=== PATIENT | female | born 1945 | race Caucasian/White ===

== ENCOUNTER 2019-11-30 17:59 | Emergency (ER) | payer MEDICARE, MEDICAID, SELFPAY ==
[2019-11-30 18:01] VITALS: BMI 15.6
--- NOTE | 2019-11-30 18:03 | ED_ITS ---
Entered by Anne Mas, acting as scribe for HPI - Neuro Symptoms/Deficit General: Chief Complaint: Neuro Symptoms/Deficit Stated Complaint: LEFT ARM WEAKNESS Time Seen by Provider: 11/30/19 18:14 Source: patient and EMS Mode of arrival: EMS Limitations: no limitations History of Present Illness: HPI Narrative: 74 yo Female presents to ED with complaint of arm tingling and left side upper extremity weakness. Pt states that these symptoms started at 1715 today. She states she was normal at least 15 minutes before this. Pt states that she has atrial fibrillation but does not take any blood thinners. Pt states that she felt a little dizzy and tingly when this episode first started. Onset (ago): minute(s) Location: left arm and ataxia History of same: No Quality: weak and tingling Relieving factors: none Exacerbating factors: none Context: gradual onset On Anticoagulants: No Associated symptoms: Reports tingling and weakness; Deny chest pain, diaphoresis, headache(s), malaise, nausea, syncope, vertigo or vomiting Treatments Prior to Arrival: none Review of Systems General: Reports: other (negative unless marked) Const: Denies: fever, chills, body aches, fatigue, malaise or diaphoresis Eyes: Denies: change in vision or blurry vision ENMT: Denies: throat pain, painful swallowing, hoarseness, ear pain, ear discharge, Change in hearing or nasal discharge Card: Denies: chest pain, palpitations, irregular heart rhythm, syncope, pre- syncope, shortness of breath on exertion or shortness of breath when lying down Resp: Denies: shortness of breath, productive cough, non-productive cough, wheezing, coughing up blood or chest congestion GI: Denies: abdominal pain, nausea, vomiting, vomiting blood, coffee grounds in vomit, diarrhea, constipation, cramping, blood in stool or black tarry stool : Denies: flank pain, painful urination, urinary frequency, urinary urgency, decreased urine ouput, urinary incontinence or blood in urine Musc: Denies: neck pain, back pain, extremity pain, extremity swelling, joint pain, joint swelling, joint warmth or joint stiffness Skin/Breast: Denies: rash, skin tenderness or yellow skin Neuro: Reports: numbness in extremities, weakness in extremities and dizziness; Denies: headache, changes in sensation, lack of coordination, difficulty walking, vertigo or confusion Endo: Denies: excessive thirst, tired all the time, cold intolerance, excessive sweating, flushing or hot flashes [place]/Lymph: Denies: easy bruising, easy bleeding, petechiae or enlarged lymph nodes All/Imm: Denies: hives, throat swelling, tongue swelling, facial swelling or acute wheezing PFSH ED PFSH: Statuses (acute, chronic, etc) shown below reflect problem list status as previously entered and may not be historically accurate Social History Smoking and tobacco status: former smoker NIH stroke score NIHSS: Level Of Consciousness - 1a: 0 Level Of Consciousness Questions - 1b: Both Correct Level Of Consciousness Commands - 1c: Both Correct Best Gaze - 2: Normal Visual Fischer - 3: No Visual Loss Facial Palsy - 4: Normal Motor Arm Right - 5: No Drift Motor Arm Left - 5: Drift Motor Leg Right - 6: No Drift Motor Leg Left - 6: Drift Limb Ataxia - 7: Present In One Limb Sensory - 8: Mild To Moderate Loss Best Language - 9: No Aphasia Dysarthia - 10: Normal Extinction And Inattention - 11: 0 Score: Total Score: 4 Physical Exam Const: COMMON NORMALS: no apparent distress, oriented x3, no limitations, healthy appearing and well nourished EXAM LIMITATIONS: no altered mental status GENERAL APPEARANCE: cooperative, well kempt and well developed ORIENTATION/CONSCIOUSNESS: Yes awake HENMT: COMMON NORMALS: normocephalic, head/scalp atraumatic, hearing grossly normal bilaterally, external ears normal, EAC's normal, external nose normal and moist oral mucous membranes HEAD & SCALP: normal to inspection, normocephalic and atraumatic FACE & SINUS: normal facial exam and face symmetric NOSE: external nose normal and nares normal EXTERNAL EAR: Yes external ears normal EXTERNAL AUDITORY CANAL: EAC's normal MOUTH: oral and palatal mucosa normal and tongue normal Eye: COMMON NORMALS: PERRL, EOMs intact bilaterally, conjunctivae normal and no scleral icterus GENERAL EYE: normal appearance of both eyes and normal light reflex CONJUNCTIVA: Yes conjunctivae normal SCLERA: sclerae normal CORNEA: Yes corneas normal PUPIL: Yes PERRL DIRECT OPHTHALMOSCOPY: Yes normal light reflex Neck/C-Spine: COMMON NORMALS: full ROM, no lymphadenopathy, supple, no meningeal signs and no JVD GENERAL: Yes normal visual inspection and Yes trachea midline CERVICAL SPINE: Yes cervical ROM normal Chest: COMMONS NORMALS: inspection of chest normal and palpation of chest normal Resp: COMMON NORMALS: normal respiratory effort, no retractions, no use of accessory muscles and clear to auscultation bilaterally EFFORT & INSPECTION: Yes able to speak in complete sentences AUSCULTATION: clear to auscultation bilaterally Cardio: COMMON NORMALS: no JVD, regular rate, regular rhythm, S1 normal heart sound, S2 normal heart sound, no gallops, no clicks, no murmurs and no rub JUGULAR VENOUS DISTENTION: no JVD RATE: regular rate RHYTHM: regular rhythm HEART SOUNDS: S1 normal and S2 normal GI: COMMON NORMALS: soft to palpation, non-tender, no hepatosplenomegaly and no masses INSPECTION: Yes normal to inspection PALPATION: Yes soft and Yes no hepatosplenomegaly : COMMON NORMALS: Yes no CVA tenderness BLADDER/KIDNEY EXAM: Yes no CVA tenderness Back/Pelvis: COMMON NORMALS: no CVA tenderness, thoracic and lumbar spine normal to inspection, no thoracic nor lumbar tenderness and thoraco-lumbar ROM normal Extremity: COMMON NORMALS: normal to inspection, full ROM, normal capillary refill, no joint enlargement, no clubbing, cyanosis or edema and no calf tenderness Neuro: COMMON NORMALS: oriented x3, CN's II-XII intact bilaterally, moves all extremities, no focal motor deficits and no sensory deficits noted MENINGEAL SIGNS: Yes no meningeal signs Psych: COMMON NORMALS: mental status grossly normal, thought process normal, cooperative, affect normal, speech normal and activity/motor behavior normal APPEARANCE: Yes well kempt SPEECH: Yes normal speech THOUGHT PROCESS: normal thought process Skin: COMMON NORMALS: no rashes or lesions noted, skin turgor normal, no jaundice, no petechiae and no mottling GENERAL SKIN EXAM: no rashes or lesions noted and turgor normal Course Vital Signs: Vital signs: Vital Signs Temperature 98.0 F 11/30/19 18:15 Pulse Rate 94 11/30/19 21:27 Respiratory Rate 22 H 11/30/19 21:27 Blood Pressure 133/74 11/30/19 21:27 Pulse Oximetry 94 11/30/19 21:27 MDM - Neuro Symptoms/Deficit MDM Narrative: Medical decision making narrative: 18:15 Dr. [place] made decision to administer TPA. We will not proceed with CTA as the patient's NIH is less than 6. Blood pressure is in normal range and labs are appropriate. 2100 -the case is been previously reviewed with Dr. Sanchez, he was aware of the patient and accepted in transfer. At this time EMS is coming to get the patient. Her symptoms have completely resolved at this time. Lab Data: Attestation: I reviewed the patient's lab results. Labs: Lab Results 11/30/19 11/30/19 11/30/19 Range/Units 18:13 18:20 18:20 WBC 5.6 (4.0-10.0) 10^3/ uL RBC 4.42 (4.1-5.3) 10^6/u L Hgb 13.5 (11.5-15.3) g/dL Hct 41.9 (37.0-47.0) % MCV 94.8 (81-99) fL MCH 30.5 (28.0-34.0) pg MCHC 32.2 (30.0-36.0) g/dL RDW 14.0 (12.1-15.1) % Plt Count 176 (130-400) 10^3/c mm MPV 10.8 H (7.4-10.4) fL Neut % (Auto) 68.3 % Lymph % (Auto) 17.1 % [place] % (Auto) 12.1 % Eos % (Auto) 1.8 % Baso % (Auto) 0.5 % Neut # (Auto) 3.8 (1.8-7.7) 10^3/u L Lymph # (Auto) 1.0 (0.8-4.8) 10^3/u L [place] # (Auto) 0.7 (0.2-0.9) 10^3/u L Eos # (Auto) 0.1 (0.0-0.8) 10^3/u L Baso # (Auto) 0.0 (0.0-0.1) 10^3/u L Nucleated RBC % (a uto) 0 % Nucleated RBCs # 0.0 /100WBC PT 15.20 H (10.5-13.3) SECO NDS INR 1.16 (0.8-1.2) APTT 33.5 (23.9-36.7) SECO NDS Sodium (136-145) mmol/L Potassium (3.5-5.1) mmol/L Chloride (98-107) mmol/L Carbon Dioxide (22-29) mmol/L Anion Gap (5-19) BUN (8-23) mg/dL Creatinine (0.5-0.9) mg/dL Glucose (65-115) mg/dL POC Glucose 88 (70-110) mg/dL Calcium (8.5-10.5) mg/dL Total Bilirubin (0.15-1.2) mg/dL AST (0-32) U/L ALT (0-33) U/L Alkaline Phosphata se (35-105) IU/L Total Protein (6.6-8.7) g/dL Albumin (3.5-5.2) g/dL Globulin (1.3-4.6) g/dL 11/30/19 Range/Units 18:20 WBC (4.0-10.0) 10^3/ uL RBC (4.1-5.3) 10^6/u L Hgb (11.5-15.3) g/dL Hct (37.0-47.0) % MCV (81-99) fL MCH (28.0-34.0) pg MCHC (30.0-36.0) g/dL RDW (12.1-15.1) % Plt Count (130-400) 10^3/c mm MPV (7.4-10.4) fL Neut % (Auto) % Lymph % (Auto) % [place] % (Auto) % Eos % (Auto) % Baso % (Auto) % Neut # (Auto) (1.8-7.7) 10^3/u L Lymph # (Auto) (0.8-4.8) 10^3/u L [place] # (Auto) (0.2-0.9) 10^3/u L Eos # (Auto) (0.0-0.8) 10^3/u L Baso # (Auto) (0.0-0.1) 10^3/u L Nucleated RBC % (a uto) % Nucleated RBCs # /100WBC PT (10.5-13.3) SECO NDS INR (0.8-1.2) APTT (23.9-36.7) SECO NDS Sodium 139 (136-145) mmol/L Potassium 4.2 (3.5-5.1) mmol/L Chloride 100 (98-107) mmol/L Carbon Dioxide 26 (22-29) mmol/L Anion Gap 17.2 (5-19) BUN 31 H (8-23) mg/dL Creatinine 1.3 H (0.5-0.9) mg/dL Glucose 94 (65-115) mg/dL POC Glucose (70-110) mg/dL Calcium 10.1 (8.5-10.5) mg/dL Total Bilirubin 0.4 (0.15-1.2) mg/dL AST 19 (0-32) U/L ALT 12 (0-33) U/L Alkaline Phosphata se 61 (35-105) IU/L Total Protein 7.6 (6.6-8.7) g/dL Albumin 4.4 (3.5-5.2) g/dL Globulin 3.2 (1.3-4.6) g/dL Imaging Data^: CT Head: Radiologist's impression: [place] [address] CT Scan Report Signed Patient: Audelia Zacarias #: [id number] : 4Acct#:[id number] Age/Sex: 74 / FADM Date: 11/30/19 Loc: [facility]/Bed: Attending Dr: Ordering Provider/Ordering MD: Brisa Vrema DO Date of Service: 11/30/19 Procedure(s): CT head wo con* [id number] Accession Number(s): [id number] Report Number: [id number] PROCEDURE INFORMATION: Exam: CT Head Without Contrast Exam date and time: 11/30/2019 6:01 PM Age: 74 years old Clinical indication: Weakness, facial; Additional info: Symptoms of acute stroke TECHNIQUE: Imaging protocol: Computed tomography of the head without contrast. Total DLP: 609.65 mGy-cm Radiation optimization: All CT scans at this facility use at least one of these dose optimization techniques: automated exposure control; mA and/or kV adjustment per patient size (includes targeted exams where dose is matched to clinical indication); or iterative reconstruction. Other technique: STROKE PROTOCOL was implemented. COMPARISON: No relevant prior studies available. FINDINGS: Brain: Normal. No hemorrhage. Unremarkable white matter. No mass effect. Ventricles: Normal. No ventriculomegaly. Bones/joints: Unremarkable. No acute fracture. Sinuses: Mild left sphenoid sinus disease. Mastoid air cells: Visualized mastoid air cells are well aerated. Soft tissues: Unremarkable. Vasculature: Severe calcified intracranial atherosclerotic vessel disease. CT/CT head wo con* [id number] IMPRESSION: 1. Mild left sphenoid sinus disease. 2. No acute intracranial findings. ASSESSMENT: ASPECTS ([place] Stroke Program Early CT Score) is 10. Radiation Dose CTDIVOL = (mGy): DLP = 609.65 (mGy-cm) Dictated By:Jace Allen MD Signed By:Jace Allen MDSigned Date/Time:11/30/191818 DD/ 17 EKG Data^: EKG 1: Attestation: I personally reviewed and interpreted this EKG as follows: EKG interpretation date: 11/30/19 EKG interpretation time: 19:20 Interpretation: Atrial fibrillation with a ventricular rate of 93 beats a minute, nonspecific ST-T wave changes, otherwise no acute findings. Discharge Plan Discharge Patient Disposition: Xfer Short-Term Hosp Clinical Impression: Cerebrovascular accident Qualifiers: CVA mechanism: unspecified Qualified Code(s): I63.9 - Cerebral infarction, unspecified Condition: Stable Referrals: Mark Kraus MD [Primary Care Provider] - Coding Level of Care Code ED Personal Development Mentor for Chg Fwd Exam Problem Focused The documentation recorded by the Tg more Carmen, accurately reflects the service I personally performed and the decisions made by Luci barry Eli N
[2019-11-30 18:15] VITALS: BP 141/98; PULSE 112; RESP 20; TEMP 36.7; O2SAT 96
[2019-11-30 18:27] LABS: Glucose Point of Care 88 mg/dL (70-110)
[2019-11-30 18:29] VITALS: O2SAT 98
[2019-11-30 18:30] VITALS: BP 145/92; PULSE 109; RESP 18; O2SAT 97
[2019-11-30 18:35] LABS: Basophils % 0.5 %; Eosinophils # 0.1 10^3/uL (0.0-0.8); Eosinophils % 1.8 %; Hematocrit 41.9 % (37.0-47.0); Hemoglobin 13.5 g/dL (11.5-15.3); Lymphocytes % 17.1 %; Mean Corpuscular HGB Conc 32.2 g/dL (30.0-36.0); Mean Corpuscular Hemoglobin 30.5 pg (28.0-34.0); Mean Corpuscular Volume 94.8 fL (81-99); Mean Platelet Volume 10.8 fL (7.4-10.4); Monocytes # 0.7 10^3/uL (0.2-0.9); Monocytes % 12.1 %; Neutrophils # 3.8 10^3/uL (1.8-7.7); Neutrophils % 68.3 %; Nucleated Red Blood Cells % 0 %; Platelet Count 176 10^3/cmm (130-400); Red Blood Count 4.42 10^6/uL (4.1-5.3); White Blood Count 5.6 10^3/uL (4.0-10.0)
[2019-11-30 18:55] LABS: INR 1.16 (0.8-1.2)
[2019-11-30 18:56] LABS: Alanine Aminotransferase 12 U/L (0-33); Albumin Level 4.4 g/dL (3.5-5.2); Alkaline Phosphatase 61 IU/L (35-105); Anion Gap 17.2 (5-19); Aspartate Amino Transferase 19 U/L (0-32); Blood Urea Nitrogen 31 mg/dL (8-23); Calcium 10.1 mg/dL (8.5-10.5); Carbon Dioxide 26 mmol/L (22-29); Chloride 100 mmol/L (98-107); Globulin 3.2 g/dL (1.3-4.6); Glucose 94 mg/dL (65-115); Partial Thromboplastin Time 33.5 SECONDS (23.9-36.7); Potassium 4.2 mmol/L (3.5-5.1); Sodium 139 mmol/L (136-145); Total Bilirubin 0.4 mg/dL (0.15-1.2); Total Protein 7.6 g/dL (6.6-8.7)
--- NOTE | 2019-11-30 21:25 | PC.NURSE ---
Patient left in stable condition in care of EMS for transfer to [address] room 4317. Report called to Trevor HARDY.
[2019-11-30 21:27] VITALS: BP 133/74; PULSE 94; RESP 22; O2SAT 94
--- NOTE | 2019-12-08 17:05 | PM.SAN ---
Stroke Alert Activation ED Arrival Date: 11/30/19 ED Arrival Time: 18:00 ED Physican at Bedside: 18:00 Last Known Normal/at Baseline: < 1 hour ago Other Last Known Well Infomation: I was called stat for stroke team for this 74-year-old woman. Her NIH stroke scale score was 4. I came directly to the emergency department as soon as the stroke alert was called which was as soon as the patient arrived in the hospital. I looked at her CAT scan on the monitor and there was no sign of hemorrhage. She received the order for TPA within 17 minutes of her arrival and the bolus was given 20 minutes after arrival. Her blood pressure and blood sugar were both normal (blood pressure 116/69 and Accu-Chek 88). She wanted to stay here but we did not have a bed and she was transferred for further care. I explained her stroke to the family and Dr. Gay and I worked together on this patient's care. Stroke Alert Activated by: [facility] Stroke Alert Activation Time: 17:55 Stroke MD @ Bedside Time: 17:57 NIH Stroke Scale Time: 18:07 NIH Stroke Scale Score: NIH Stroke Scale Score: 4 Stroke Alert Data/Treatment Time to CT of Head: 18:00 CT Results Time: 18:07 tPA Started Time: tPA Started - Time: 18:20 tPA Admin Prior to Arrival: No Patient & Family Educated on: Cause of Stroke, Risk Factors, Treament Plan, Stroke Education Booklet and tPA Risks/Benefits Standardized Stroke Orders Used: No (Patient was transferred because we did not have beds) Critical Care Time Critical Care Time: less than 30 mins Coding Level of Care Code Acute Sales Planning Coordinator for Ayesha Fwjuan francisco Time Spent (min) 30
== END 2019-11-30 21:35 | disposition short-term general hospital (02) ==
PROVIDERS: Emergency Provider Emergency Medicine; Family Provider Family Medicine; PCP Family Medicine
DX: I63.9 Cerebral infarction, unspecified (principal); Z87.891 Personal history of nicotine dependence
CPT/HCPCS: 12345; 36415; 36416; 70450; 80053; 82962; 85025; 85610; 85730; 96365; 96374; 99283; 99285; J2997

== ENCOUNTER 2019-12-16 16:56 | Outpatient (CLI) | payer MEDICARE, SELFPAY ==
--- NOTE | 2019-12-16 17:05 | XRR_ITS ---
PROCEDURE INFORMATION: Exam: XR Chest, 1 View Exam date and time: 12/16/2019 5:05 PM Age: 74 years old Clinical indication: Shortness of breath; Prior surgery; Surgery date: <1 month; Additional info: Dyspnea. Please call Dr. Baugh with report TECHNIQUE: Imaging protocol: XR of the chest Views: 1 view. COMPARISON: CR Chest 1 [place] [id number] 12/03/2013 11:14 AM FINDINGS: Lungs: Emphysema. 2.0 cm nodular density in the right lung apex. Scarring in the right upper lung. Bibasilar atelectasis. Pleural space: Small bilateral pleural effusions. No pneumothorax. Heart/Mediastinum: Atrial appendage closure device. Bones/joints: Apical pleural scarring, right greater than left. Mild scoliosis. XR/XR chest 1V [id number] IMPRESSION: 1. 2 cm nodule in the right lung apex. A neoplastic process is not excluded. Follow-up with a CT chest is recommended. 2. Pleural effusions with basilar atelectasis.
== END 2019-12-16 16:57 | disposition home or self-care (01) ==
PROVIDERS: Family Provider Family Medicine; PCP Family Medicine; Visit Provider Thoracic Surgery (Cardiothoracic Vascular Surgery)
DX: R06.00 Dyspnea, unspecified (principal); R91.1 Solitary pulmonary nodule; J90 Pleural effusion, not elsewhere classified; J98.11 Atelectasis
CPT/HCPCS: 71045

== ENCOUNTER 2020-02-17 07:59 | Outpatient (CLI) | payer MEDICARE, MEDICAID, SELFPAY ==
--- NOTE | 2020-02-17 08:03 | CT_ITS ---
WS: [id number] CT CHEST TECHNIQUE: Contrast enhanced CT of the chest with coronal and sagittal reformatted images. CLINICAL INFORMATION: RIGHT PULMONARY NODULE COMPARISON: Radiograph January 28, 2020 DLP: 664.[address] scans at [facility] use at least one of these dose optimization techniques: automat ed exposure control; mA and/or kV adjustment per patient size (includes targeted exams where dose is matched to clinical indication); or iterative reconstruction. FINDINGS: Hyperinflation. Advanced chronic emphysematous changes. Pleural thickening right upper lobe with fibr osis. No suspicious pulmonary mass or nodule. Pleural thickening left lung apex. Small bilateral pleural effusions with right greater than left bibasilar atelectasis. Micronodular tr ee-in-bud type infiltrates in the lung bases and right middle lobe. Additional similar-appearing fibr otic and micronodular infiltrates in right upper lobe anteromedially. No focal consolidation. Cardio megaly. No mediastinal or hilar lymphadenopathy. Normal thyroid. Normal caliber thoracic aorta. Mild aortic calcification. No axillary lymphadenopathy. Partially visualized left renal pelvic/UPJ calculus. Findings can be further evaluated with renal sto ne protocol CT. Calculus measures 6 mm on the left. Mild diffuse fatty infiltration of the liver. Mild intrahepatic biliary ductal dilatation. Enlarged c ommon bile duct partially visualized measuring 7.8 mm. Partially Visualized gallbladder appears cathy l. Findings can be further evaluated with ultrasound.. Moderate thoracic kyphosis. Mild thoracic curve. CT/CT chest w con* [id number] IMPRESSION: 1. No evidence of right upper lobe pulmonary mass or lesion to correspond to t he x-ray findings. 2. Moderate chronic emphysematous changes with small bilateral pleural effusio ns and bibasilar atelectasis. 3. Micronodular tree-in-bud type infiltrates both lower lobes, right middle lo be, and right upper lobe anteriorly with parenchymal scarring. Findings can be seen with bronchiolitis. 4. No mediastinal or hilar lymphadenopathy. 5. Partially visualized left renal pelvic calculus measuring 6 mm. This can be further evaluated with renal stone protocol CT. 6. Enlargement of the right hepatic lobe with mild intrahepatic biliary ductal dilatation. Dilated common bile duct measuring 8 mm. This can be further evalu ated with ultrasound.
[2020-02-17 08:32] LABS: Blood Urea Nitrogen 25 mg/dL (8-23)
[2020-02-17] MEDS: iodixanol 320 mg/mL 100mL Btl IV (08:39)
== END 2020-02-17 08:00 | disposition home or self-care (01) ==
LOC: RADWPI 08:02
PROVIDERS: Family Provider Family Medicine; PCP Family Medicine; Visit Provider Family Medicine
DX: R91.1 Solitary pulmonary nodule (principal); J90 Pleural effusion, not elsewhere classified; J98.11 Atelectasis; R91.8 Other nonspecific abnormal finding of lung field; R16.0 Hepatomegaly, not elsewhere classified
CPT/HCPCS: 71260; 82565; 84520; Q9967

== ENCOUNTER 2020-02-23 08:39 | Outpatient (CLI) | payer MEDICARE, MEDICAID, SELFPAY ==
--- NOTE | 2020-02-23 | US_ITS ---
WS: [id number] RIGHT UPPER QUADRANT ULTRASOUND HISTORY: COMMON BILE DUCT DILATATION COMPARISON: 04/07/2011. Chest CT 02/17/2020 Liver: 15.0 cm in length. Normal size and echogenicity with no intrahepatic dilatation. No mass. Gallbladder: Normally distended gallbladder with no stones or wall thickening. CBD: 3.2 cm Pancreas: Normal size and echogenicity. Right kidney: 9.2 cm in length. Normal echogenicity with no mass or hydronephrosis. Aorta and IVC: Unremarkable. No ascites. Small RIGHT pleural effusion. US/US liver [id number] IMPRESSION: 1. No intrahepatic or extra hepatic duct dilatation. 2. Normal gallbladder. 3. Small RIGHT pleural effusion.
== END 2020-02-23 08:40 | disposition home or self-care (01) ==
PROVIDERS: Family Provider Family Medicine; PCP Family Medicine; Visit Provider Family Medicine
DX: K83.8 Other specified diseases of biliary tract (principal); J90 Pleural effusion, not elsewhere classified
CPT/HCPCS: 76705

== ENCOUNTER 2020-06-15 10:07 | Outpatient (CLI) | payer MEDICARE, MEDICAID, SELFPAY ==
--- NOTE | 2020-06-15 10:15 | USCV_ITS ---
Audelia Zacarias Age: 74 Gender: F : 1945 Exam Date: 06/15/2020 10:23 Ordering Phys: Monica Orosco Technologist: Jane Holt Exam Location: [facility] [place] Indication: Shortness of breath BP: 110 / 60 HR: 76 Rhythm: Sinus Technical Quality: Fair MEASUREMENTS (Male / Female) Normal Values 2D ECHO LV Diastolic Diameter PLAX 3.0 cm 4.2 - 5.9 / 3.9 - 5.3 cm LV Systolic Diameter PLAX 1.2 cm LV Chamber Size 2.9 cm IVS Diastolic Thickness 0.8 cm 0.6 - 1.0 / 0.6 - 0.9 cm IVS Systolic Thickness 1.2 cm LVPW Diastolic Thickness 0.6 cm 0.6 - 1.0 / 0.6 - 0.9 cm LVPW Systolic Thickness 1.3 cm RV Chamber Size 3.5 cm LVOT Diameter 2.0 cm LV Ejection Fraction 2D Teich 89.9 % LV Ejection Fraction MOD 2C 58.0 % LV Ejection Fraction 2C AL 59.0 % LA Diameter 2.9 cm LA Width 4.8 cm LA Height 6.3 cm RA Width 3.5 cm RA Height 4.7 cm Aorta at Sinotubular Diameter 2.4 cm M-MODE LV Diastolic Diameter MM 3.3 cm 4.2 - 5.9 / 3.9 - 5.3 cm LV Systolic Diameter MM 1.7 cm LV Ejection Fraction MM Teich 82.2 % IVS Diastolic Thickness MM 0.5 cm 0.6 - 1.0 / 0.6 - 0.9 cm IVS Systolic Thickness MM 0.9 cm LVPW Diastolic Thickness MM 0.7 cm 0.6 - 1.0 / 0.6 - 0.9 cm LVPW Systolic Thickness MM 1.1 cm RV Diastolic Diameter MM 1.3 cm Aortic Annulus Diameter 2.9 cm LA Ao Ratio MM 1.0 MV E Point Septal Separation 0.3 cm DOPPLER AV Peak Velocity 103.0 cm/s LVOT Peak Velocity 81.0 cm/s AV Area Cont Eq vti 2.1 cm squared AV Area Cont Eq pk 2.4 cm squared MV Area PHT 3.9 cm squared MV E' Velocity 11.0 cm/s Mitral E to MV E' Ratio 7.0 Mitral E to LV E' Lateral Ratio 8.0 Mitral E to LV E' Septal Ratio 6.2 TR Peak Velocity 260.0 cm/s TR Peak Gradient 27.0 mmHg TR Mean Velocity 186.8 cm/s TR Mean Gradient 14.3 mmHg TR Velocity Time Integral 67.0 cm TV Peak E Velocity 41.0 cm/s Right Atrial Pressure 8.0 mmHg Pulmonary Artery Systolic Pressu 35.0 mmHg PV Peak Velocity 34.0 cm/s RV Acceleration Time 0.1 s RV Ejection Time 0.3 s RV AcT/ET 0.4 FINDINGS Left Ventricle Normal left ventricular size, systolic function and wall thickness, with no regional wall motion abnormalities. LVEF is 55 to 60%. Diastolic function is indeterminate because of atrial fibrillation. Right Ventricle The right ventricle is normal in size and function. Right Atrium The right atrium is normal in size. Left Atrium The left atrium is mildly dilated Mitral Valve Structurally normal mitral valve without significant stenosis or prolapse. There is no mitral regurgitation. Aortic Valve Structurally normal aortic valve without significant sclerosis or stenosis. There is no aortic regurgitation. Tricuspid Valve Structurally normal tricuspid valve without significant stenosis. Mild tricuspid regurgitation is noted. RVSP is 45 to 50 mmHg. Moderate pulmonary hypertension. RA pressure is 10 to 15 mmHg. Pulmonic Valve Structurally normal pulmonic valve without significant stenosis. There is mild pulmonic regurgitation. Pericardium Normal pericardium without effusion. Aorta Normal ascending aorta dimension. CONCLUSIONS LV systolic function is normal with EF of 55 to 60%. Diastolic function is indeterminate because of atrial fibrillation. Moderate pulmonary hypertension is noted. Mildly elevated RA pressure. Celestine Dorantes MD (Electronically Signed) Final Date: 16 June 2020 09:17 S
== END 2020-06-15 10:08 | disposition home or self-care (01) ==
LOC: US 10:08
PROVIDERS: PCP Family Medicine; Visit Provider Nurse Practitioner Family
DX: R06.02 Shortness of breath (principal); I27.20 Pulmonary hypertension, unspecified; I48.91 Unspecified atrial fibrillation
CPT/HCPCS: 93306

== ENCOUNTER → 2020-06-22 14:01 | Outpatient (BNVA) | payer MEDICARE, MEDICAID, SELFPAY | PROVIDERS: Family Provider Family Medicine; PCP Family Medicine; Visit Provider Internal Medicine | DX: R06.02 Shortness of breath (principal); I48.91 Unspecified atrial fibrillation; M79.89 Other specified soft tissue disorders; R53.83 Other fatigue; I27.20 Pulmonary hypertension, unspecified; Z86.73 Personal history of transient ischemic attack (TIA), and cerebral infarction without residual deficits; Z79.899 Other long term (current) drug therapy | CPT/HCPCS: 80048; 83880 ==

== ENCOUNTER 2021-06-29 14:39 | Outpatient (CLI) | payer MEDICARE, MEDICAID, SELFPAY ==
--- NOTE | 2021-06-29 14:47 | XR_ITS ---
WS: [id number] DEXA (DUAL ENERGY X-RAY ABSORPTIOMETRY) Bone mineral density was performed using a [employer] machine. HISTORY: POSTMENOPAUSAL COMPARISON: 01/24/2018 Lumbar spine BMD (L1-L4): 0.821 g/cm2 T score: -3.0 Z score: -0.4 Total hip BMD: Left: 0.603 g/cm2. T score: -3.2 Z score: -0.8 Right: 0.642 g/cm2. T score: -2.9 Z score: -0.5 10 year probability of a major osteoporotic fracture is 17%. Compared to the prior study from 01/24/2018. Lumbar spine bone mineral density has decrease by 9.0%. Bilateral hips bone mineral density has decreased by 4.7%. XR/XR DEXA axial skeleton* [id number] IMPRESSION: OSTEOPOROSIS based upon the WHO classification for females. Significant decrease in bone mineral density within the lumbar spine and hips s schuyler the prior study.
--- NOTE | 2021-06-29 15:16 | MM_ITS ---
WS: [id number] BILATERAL DIGITAL SCREENING MAMMOGRAM WITH CAD CLINICAL INFORMATION: SCREENING HISTORY: Screening mammogram. No current complaints. COMPARISON: TECHNIQUE: Bilateral CC and MLO. FINDINGS: The breast are composed of extremely dense tissue, which can limit the detection of small underlying mass lesions. No suspicious focal mass, asymmetry, calcifications, or architectural distortion. No ev idence of malignancy. Vascular calcification. A few eggshell calcifications. MM/[id number] IMPRESSION: BI-RADS: 2-Benign FOLLOW UP: 1 Year Follow-up Recommend return to annual screening mammography.
== END 2021-06-29 14:40 | disposition home or self-care (01) ==
PROVIDERS: PCP Family Medicine; Visit Provider Nurse Practitioner Family
DX: Z12.31 Encounter for screening mammogram for malignant neoplasm of breast (principal); Z78.0 Asymptomatic menopausal state; M81.0 Age-related osteoporosis without current pathological fracture
CPT/HCPCS: 77067; 77080

== ENCOUNTER 2022-08-28 14:25 | Outpatient (CLI) | payer MEDICARE, MEDICAID, SELFPAY ==
--- NOTE | 2022-08-28 14:31 | MM_ITS ---
WS: [id number] BILATERAL 3D TOMOSYNTHESIS DIGITAL SCREENING MAMMOGRAM WITH CAD CLINICAL INFORMATION: SCREENING HISTORY: Screening mammogram. No current complaints. COMPARISON: 2020 TECHNIQUE: Bilateral CC and MLO. FINDINGS: The breast are composed of extremely dense tissue, which can limit the detection of small underlying mass lesions. No suspicious focal mass, asymmetry, calcifications, or architectural distortion. No ev idence of malignancy. Vascular calcification. A few eggshell calcifications. MM/[id number] IMPRESSION: BI-RADS: 2-Benign FOLLOW UP: 1 Year Follow-up Recommend return to annual screening mammography.
== END 2022-08-28 14:26 | disposition home or self-care (01) ==
LOC: RAD 14:25
PROVIDERS: PCP Family Medicine; Visit Provider Family Medicine
DX: Z12.31 Encounter for screening mammogram for malignant neoplasm of breast (principal)
CPT/HCPCS: 77063; 77067

== ENCOUNTER → 2022-10-10 13:41 | Outpatient (BNVA) | payer MEDICARE, MEDICAID, SELFPAY | PROVIDERS: PCP Family Medicine; Visit Provider Internal Medicine | DX: I48.91 Unspecified atrial fibrillation (principal); Z86.73 Personal history of transient ischemic attack (TIA), and cerebral infarction without residual deficits; R64 Cachexia; Z68.1 Body mass index [BMI] 19.9 or less, adult | CPT/HCPCS: 99213 ==

== ENCOUNTER → 2023-03-22 07:54 | Outpatient (BNVA) | payer MEDICARE, MEDICAID, SELFPAY | PROVIDERS: PCP Family Medicine; Visit Provider Thoracic Surgery (Cardiothoracic Vascular Surgery) | DX: Z51.89 Encounter for other specified aftercare (principal) | CPT/HCPCS: 99213; A6212 ==

== ENCOUNTER → 2023-04-11 15:14 | Outpatient (BNVA) | payer MEDICARE, MEDICAID, SELFPAY | PROVIDERS: PCP Family Medicine; Visit Provider Internal Medicine | DX: I48.91 Unspecified atrial fibrillation (principal); R64 Cachexia; Z68.1 Body mass index [BMI] 19.9 or less, adult; Z86.73 Personal history of transient ischemic attack (TIA), and cerebral infarction without residual deficits | CPT/HCPCS: 99214 ==

== ENCOUNTER 2023-08-30 08:56 | Outpatient (CLI) | payer MEDICARE, MEDICAID, SELFPAY ==
--- NOTE | 2023-08-30 09:26 | MM_ITS ---
WS: [id number] BILATERAL SCREENING DIGITAL TOMOSYNTHESIS MAMMOGRAM WITH CAD HISTORY: SCREENING COMPARISON: 08/28/2022 and 06/29/2021 Bilateral CC and MLO views with tomosynthesis and synthetic mammography submitted. Computer aided det ection analyzed. Breast composition: The breasts are extremely dense, which lowers the sensitivity of mammography. No suspicious masses, microcalcifications or architectural distortion. Benign arterial calcifications in each breast. IMPRESSION: MM/[place] [id number] BI-RADS: 2-Benign FOLLOW UP: 1 Year Follow-up
== END 2023-08-30 08:57 | disposition home or self-care (01) ==
LOC: RAD 08:56
PROVIDERS: PCP Family Medicine; Visit Provider Family Medicine
DX: Z12.31 Encounter for screening mammogram for malignant neoplasm of breast (principal)
CPT/HCPCS: 77063; 77067

== ENCOUNTER → 2023-10-08 13:31 | Outpatient (BNVA) | payer MEDICARE, MEDICAID, SELFPAY | PROVIDERS: PCP Family Medicine; Visit Provider Internal Medicine Cardiovascular Disease | DX: I48.91 Unspecified atrial fibrillation (principal); Z95.818 Presence of other cardiac implants and grafts; F50.9 Eating disorder, unspecified; R04.0 Epistaxis; K21.9 Gastro-esophageal reflux disease without esophagitis; R06.02 Shortness of breath; R64 Cachexia; Z68.1 Body mass index [BMI] 19.9 or less, adult; I25.2 Old myocardial infarction | CPT/HCPCS: 99213 ==

== ENCOUNTER → 2024-04-07 12:11 | Outpatient (BNVA) | payer MEDICARE, MEDICAID, SELFPAY | PROVIDERS: PCP Family Medicine; Visit Provider Internal Medicine Cardiovascular Disease | DX: I48.91 Unspecified atrial fibrillation (principal); Z98.890 Other specified postprocedural states; F50.9 Eating disorder, unspecified; R04.0 Epistaxis; R64 Cachexia; R60.9 Edema, unspecified; Z86.73 Personal history of transient ischemic attack (TIA), and cerebral infarction without residual deficits; Z68.1 Body mass index [BMI] 19.9 or less, adult | CPT/HCPCS: 99214 ==

== ENCOUNTER 2024-09-25 09:12 | Emergency (ER) | payer MEDICARE, MEDICAID, SELFPAY ==
[2024-09-25 09:17] VITALS: BP 118/60; PULSE 72; RESP 17; TEMP 36.6; O2SAT 99; BMI 15.7
--- NOTE | 2024-09-25 09:19 | ECG_ITS ---
[facility] Date: 2024-09-25 Pat Name: Audelia Zacarias Department: Room: Gender: Female Cardiology Coordinator: : 1945 Requested By: Amparo Bundy Order Number: [id number] Hever MD: Osmar Tafoya M.D. Measurements Intervals [place] Rate: 72 P: 0 WV: 0 QRS: 99 QRSD: 83 T: 56 QT: 381 QTc: 417 Interpretive Statements ATRIAL FIBRILLATION POSSIBLE RIGHT VENTRICULAR CONDUCTION DELAY [RSR (QR) IN V1/V2] ANTEROLATERAL MYOCARDIAL INFARCTION , OF INDETERMINATE AGE [40+ ms Q WAVE IN I/aVL/V3-V6] No previous ECG available for comparison Electronically Signed On 09-25-2024 16:51:00 TRAVEL TICKETING REVIEWER by Osmar Tafoya M.D. [id number]
--- NOTE | 2024-09-25 09:35 | XR_ITS ---
WS: [id number] XR chest 1V portable [id number] REASON FOR EXAM: chest pain FINDINGS: Most recent examination is from 01/28/2020. Significantly thickened right lung apical cap which was present on the previous examination which ap pears unchanged. Irregular aeration throughout both lungs suggestive of central lobar emphysema. There is a septal bul lous disease in the lower lungs bilaterally. Intracardiac, presumed left atrial, device unchanged compared to the previous examination. There is cardiomegaly. There are interstitial lung opacities in both lower lung [place]. There are bilateral pleural effusion s larger on the right. XR/XR chest 1V portable [id number] IMPRESSION: Obstructive lung disease. Findings compatible with congestive heart failure.
[2024-09-25 10:28] LABS: Basophils % 0.4 %; Eosinophils # 0.1 10^3/uL (0.0-0.8); Eosinophils % 0.6 %; Hematocrit 38.7 % (36-47); Lymphocytes # 0.4 10^3/uL (0.8-4.8); Lymphocytes % 5.1 %; Mean Corpuscular HGB Conc 31.8 g/dL (30-55); Mean Corpuscular Hemoglobin 31.4 pg (27-33); Mean Corpuscular Volume 98.7 fl (85-98); Mean Platelet Volume 10.3 fL (7.4-10.4); Monocytes # 0.9 10^3/uL (0.2-0.9); Monocytes % 10.8 %; Neutrophils # 6.52 10^3/uL (1.8-7.7); Neutrophils % 82.7 %; Nucleated Red Blood Cells % 0 %; Platelet Count 195 10^3/cmm (157-399); Red Blood Count 3.92 10^6/uL (3.85-5.65); Red Cell Distribution Width 14.9 % (12.1-15.1); White Blood Count 7.88 10^3/uL (3.29-11.43)
[2024-09-25 10:44] LABS: Troponin(5th) Baseline 11 ng/L (0-10)
[2024-09-25 11:03] LABS: Alanine Aminotransferase 14 U/L (0-33); Albumin Level 4.2 g/dL (3.5-5.2); Alkaline Phosphatase 64 U/L (35-105); Blood Urea Nitrogen 22 mg/dL (8-23); Calcium 9.5 mg/dL (8.5-10.5); Carbon Dioxide 29 mmol/L (22-29); Chloride 100 mmol/L (98-107); Glucose 98 mg/dL (65-115); NT Pro B Type Natriuretic Pept 1498 pg/mL (0-450); Osmolality Calculated 291 mOsm/kg (285-295); Sodium 139 mmol/L (136-145); Total Bilirubin 0.7 mg/dL (0.15-1.2); Total Protein 7.2 g/dL (6.6-8.7)
[2024-09-25 11:04] LABS: Anion Gap 13.8 (5-19); Aspartate Amino Transferase 23 U/L (0-32); Potassium 3.8 mmol/L (3.5-5.1)
[2024-09-25 12:53] LABS: Troponin 5 2HR 10.53 ng/L (0-10)
[2024-09-25 12:54] LABS: Troponin 5 2HR Delta -0.47 ABS# (0-10)
[2024-09-25 13:12] VITALS: BP 128/66; PULSE 98; RESP 17; O2SAT 96
--- NOTE | 2024-09-25 13:15 | ECG_ITS ---
[facility] Date: 2024-09-25 Pat Name: Audelia Zacarias Department: Room: Gender: Female Bulk Sealer: : 1945 Requested By: Amparo Bundy Order Number: [id number] Hever MD: Osmar Tafoya M.D. Measurements Intervals [place] Rate: 79 P: 0 DE: 0 QRS: 99 QRSD: 87 T: 78 QT: 371 QTc: 426 Interpretive Statements ATRIAL FIBRILLATION POSSIBLE RIGHT VENTRICULAR CONDUCTION DELAY [RSR (QR) IN V1/V2] SEPTAL MYOCARDIAL INFARCTION , OF INDETERMINATE AGE [40+ ms Q WAVE IN V1/V2] LATERAL MYOCARDIAL INFARCTION , PROBABLY OLD [40+ ms Q WAVE AND/OR ST/T ABNORMALITY IN I/aVL/V5/V6] Compared to ECG 09/25/2024 09:19:14 No significant changes Electronically Signed On 09-25-2024 16:58:12 CHIEF NURSE ANESTHETIST by Osmar Tafoya M.D. [id number]
--- NOTE | 2024-09-25 13:48 | W.ED.CHESTPA ---
HPI - Chest Pain General: Chief Complaint: Chest Pain Stated Complaint: chest pain Time Seen by Provider: 09/25/24 13:35 History of Present Illness: 78-year-old female presents emergency room has intermittent chest pain that started yesterday. Does not radiate last for just a second or 2 and then resolves. She had it while at rest and with activity has not noticed anything that exacerbates or relieves it. No associated shortness of breath or diaphoresis. No nausea. She has some chronic back and neck pain and scoliosis. No recent falls or trauma no cough or congestion. Patient previously had a Watchman implant placed for her A-fib after she had a stroke she had not been taking her anticoagulant because it gave her headache. She denies any problems since then. Associated symptoms: Deny abdominal pain, dyspnea or fever(s) Related Data Home Medications Medication Instructions Recorded Confirmed famotidine 20 mg tablet 20 mg PO DAILY 03/04/20 09/25/24 metoprolol succinate 50 mg 50 mg PO DAILY 03/04/20 09/25/24 tablet,extended release 24 hr potassium chloride 10 mEq 10 meq PO DAILY 03/04/20 09/25/24 tablet,extended release (Klor-Con) montelukast 10 mg tablet 10 mg PO DAILY PRN allergies 08/25/20 09/25/24 (Singulair) verapamil 120 mg 24 hr 120 mg PO BID 09/21/21 09/25/24 capsule,extended release meclizine 12.5 mg tablet 25 mg PO TID PRN Nausea And 08/28/24 09/25/24 Vomiting sertraline 25 mg tablet 25 mg PO DAILY 08/28/24 09/25/24 atorvastatin 40 mg tablet 40 mg PO DAILY 09/25/24 09/25/24 pediatric multivitamin 2 tab PO DAILY 09/25/24 09/25/24 no.239-ferrous sulfate 10 mg chewable tablet ([facility] Immunity Support) Previous Rx's Medication Instructions Recorded furosemide 40 mg tablet 20 mg (1/2 x 40 mg) PO BID #90 tabs 07/14/20 oxybutynin chloride 5 mg 5 mg PO DAILY #30 tabs 08/28/24 tablet,extended release 24 hr Allergies Allergy/AdvReac Type Severity Reaction Status Date / Time Penicillins Allergy passed out Verified 09/25/24 10:35 Review of Systems Const: Denies: fever(s) or chills Card: Reports: chest pain; Denies: edema or swelling of feet/ankles Resp: Denies: dyspnea GI: Denies: abdominal pain : Denies: dysuria, urinary frequency or urinary urgency Musc: Denies: neck pain or back pain Skin/Breast: Denies: rash PFSH ED PFSH: Medical History Edema Shortness of breath Cervical stenosis of spine Multilevel. Atrial fibrillation GERD (gastroesophageal reflux disease) Shingles (~10/2019) Chronic neck pain Recurrent epistaxis Eating disorder Cachexia CVA (cerebral vascular accident) (11/30/19) Thought to have been caused by clot from A. fib Surgical History S/P left atrial appendage ligation S/P breast biopsy, right (02/25/01) Benign. S/P breast biopsy, left (~1995) Benign. S/P hysterectomy (~1985) H/O heart surgery (~11/2019) Due to A. fib (after stroke). Performed at [facility]. Family History Mother CAD (coronary artery disease) Father CAD (coronary artery disease) Social History Smoking and tobacco/nicotine status: former use of tobacco/nicotine Alcohol intake: never Substance/Drug Use: never Lives independently: Yes Household members: none Housing: House Physical Exam Const: GENERAL APPEARANCE: cooperative ORIENTATION/CONSCIOUSNESS: Yes awake, Yes oriented to person, Yes oriented to place and Yes oriented to time HENMT: COMMON NORMALS: normocephalic, atraumatic and hearing grossly normal bilaterally HEAD & SCALP: normocephalic and atraumatic Resp: COMMON NORMALS: normal respiratory effort, No retractions, No use of accessory muscles and clear to auscultation bilaterally AUSCULTATION: clear to auscultation bilaterally Cardio: COMMON NORMALS: regular rate, regular rhythm and No murmurs present (Cardio) RATE: regular rate RHYTHM: regular rhythm GI: COMMON NORMALS: Soft to palpation and No hepatosplenomegaly present AUSCULTATION: Yes normoactive bowel sounds PALPATION: Yes Soft to palpation, No Tenderness to palpation present (GI), No Guarding due to palpation present (GI) and Yes No hepatosplenomegaly present Extremity: COMMON NORMALS: normal to inspection, capillary refill normal, no clubbing, cyanosis or edema, no calf tenderness and no pedal edema Neuro: SENSORIUM/ORIENTATION: Yes oriented to person, Yes oriented to place and Yes oriented to time Skin: COMMON NORMALS: no rashes or lesions noted GENERAL SKIN EXAM: no rashes or lesions noted Course Vital Signs: Vital signs: Vital Signs Temperature 97.9 F 09/25/24 09:17 Pulse Rate 60 09/25/24 15:06 Respiratory Rate 17 09/25/24 14:23 Blood Pressure 110/53 09/25/24 15:06 Pulse Oximetry 99 09/25/24 15:06 Oxygen Delivery Me thod Room Air 09/25/24 09:17 MDM - Chest Pain Medical Decision Making Patient's primary complaint is pain cardiac enzymes negative. Has a history of atrial fibrillation there is mention in the chest x-ray of findings suggestive of congestive heart failure at this time she is not clinically appear fluid overloaded and she is not having any orthopnea. Some of this I believe may be either atelectasis or fibrotic changes. Will discharge patient home have her follow-up with her primary care physician. Her description of her pain is not suggestive of acute coronary syndrome. Return if she has further problems. Labs imaging and EKG reviewed as found on the chart Lab Data 09/25/24 10:15 09/25/24 10:15 Radiology Impressions Chest X-Ray 09/25/24 09:35 IMPRESSION: Obstructive lung disease. Findings compatible with congestive heart failure. Laboratory Results WBC 7.88 10^3/uL (3.29-11.43) 09/25/24 10:15 RBC 3.92 10^6/uL (3.85-5.65) 09/25/24 10:15 Hgb 12.30 g/dL (11.27-16.99) 09/25/24 10:15 Hct 38.7 % (36-47) 09/25/24 10:15 MCV 98.7 fl (85-98) H 09/25/24 10:15 MCH 31.4 pg (27-33) 09/25/24 10:15 MCHC 31.8 g/dL (30-55) 09/25/24 10:15 RDW 14.9 % (12.1-15.1) 09/25/24 10:15 Plt Count 195 10^3/cmm (157-399) 09/25/24 10:15 MPV 10.3 fL (7.4-10.4) 09/25/24 10:15 Neut % (Auto) 82.7 % 09/25/24 10:15 Lymph % (Auto) 5.1 % 09/25/24 10:15 [place] % (Auto) 10.8 % 09/25/24 10:15 Eos % (Auto) 0.6 % 09/25/24 10:15 Baso % (Auto) 0.4 % 09/25/24 10:15 Neut # (Auto) 6.52 10^3/uL (1.8-7.7) 09/25/24 10:15 Lymph # (Auto) 0.4 10^3/uL (0.8-4.8) L 09/25/24 10:15 [place] # (Auto) 0.9 10^3/uL (0.2-0.9) 09/25/24 10:15 Eos # (Auto) 0.1 10^3/uL (0.0-0.8) 09/25/24 10:15 Baso # (Auto) 0.0 10^3/uL (0.0-0.1) 09/25/24 10:15 Nucleated RBC % (auto) 0 % 09/25/24 10:15 Nucleated RBCs # 0.0 /100WBC 09/25/24 10:15 Sodium 139 mmol/L (136-145) 09/25/24 10:15 Potassium 3.8 mmol/L (3.5-5.1) 09/25/24 10:15 Chloride 100 mmol/L (98-107) 09/25/24 10:15 Carbon Dioxide 29 mmol/L (22-29) 09/25/24 10:15 Anion Gap 13.8 (5-19) 09/25/24 10:15 BUN 22 mg/dL (8-23) 09/25/24 10:15 Creatinine 1.1 mg/dL (0.5-0.9) H 09/25/24 10:15 GFR Calculation Not Reportable 09/25/24 10:15 Glucose 98 mg/dL (65-115) 09/25/24 10:15 Calculated Osmolality 291 mOsm/kg (285-295) 09/25/24 10:15 Calcium 9.5 mg/dL (8.5-10.5) 09/25/24 10:15 Total Bilirubin 0.7 mg/dL (0.15-1.2) 09/25/24 10:15 AST 23 U/L (0-32) 09/25/24 10:15 ALT 14 U/L (0-33) 09/25/24 10:15 Alkaline Phosphatase 64 U/L (35-105) 09/25/24 10:15 Troponin T Baseline 11 ng/L (0-10) H 09/25/24 10:15 Troponin T 120 Minute 10.53 ng/L (0-10) H 09/25/24 12:18 Delta Troponin T -0.47 ABS# (0-10) L 09/25/24 12:18 NT-Pro-B Natriuret Pep 1498 pg/mL (0-450) H 09/25/24 10:15 Total Protein 7.2 g/dL (6.6-8.7) 09/25/24 10:15 Albumin 4.2 g/dL (3.5-5.2) 09/25/24 10:15 Globulin 3.0 g/dL (1.3-4.6) 09/25/24 10:15 All radiology interpretation(s) finalized by discharge Discharge Plan Discharge Patient Disposition: Home Clinical Impression: Atypical chest pain, Atrial fibrillation, Congestive heart failure (CHF) Condition: Stable Prescriptions: No Action verapamil 120 mg capsule,ext rel. pellets 24 hr 120 mg PO BID potassium chloride [Klor-Con 10] 10 mEq tablet extended release 10 meq PO DAILY famotidine 20 mg tablet 20 mg PO DAILY metoprolol succinate 50 mg tablet extended release 24 hr 50 mg PO DAILY montelukast [Singulair] 10 mg tablet 10 mg PO DAILY PRN (Reason: allergies) meclizine 12.5 mg tablet 25 mg PO TID PRN (Reason: Nausea And Vomiting) furosemide 40 mg tablet 20 mg PO BID Qty: 90 3RF sertraline 25 mg tablet 25 mg PO DAILY oxybutynin chloride 5 mg tablet extended release 24hr 5 mg PO DAILY Qty: 30 0RF atorvastatin 40 mg tablet 40 mg PO DAILY [employer] Immunity Support 10 mg iron Tablet,Chewable 2 tab PO DAILY Discharge Orders: Discharge ED (Routine); Ordered 09/25/24 Ordered By: Jean Frederick Referrals: Mark Kraus MD [Primary Care Provider] - Discharge Diet: Usual diet Discharge Activity: Increase activity as tolerated Patient Instructions: Opioid Safety, Pain Management Activity Restrictions/Additional Instructions: Thank you for choosing [facility] for your healthcare needs today. It is very important that you follow up as instructed or that you return to the Emergency Department should you have concerns or if your condition changes or worsens in any way. You are seen in the emergency room with complaints of chest discomfort. Your exam was normal cardiac enzymes and EKG did not show any signs of acute coronary syndrome. Recommend increasing your Lasix to a full tablet twice a day for 3 days then follow-up with your doctor next week. Coding Level of Care Code ED Wire Stripping Machine Operator for Ayesha Boucher
[2024-09-25 14:00] VITALS: BP 107/59; PULSE 67; RESP 20; O2SAT 96
[2024-09-25 14:23] VITALS: BP 103/60; PULSE 66; RESP 17; O2SAT 96
[2024-09-25 15:06] VITALS: BP 110/53; PULSE 60; O2SAT 99
== END 2024-09-25 15:06 | disposition home or self-care (01) ==
PROVIDERS: Physician Assistant; Emergency Provider Family Medicine; PCP Family Medicine
DX: R07.89 Other chest pain (principal); I48.91 Unspecified atrial fibrillation; I50.9 Heart failure, unspecified; Z86.73 Personal history of transient ischemic attack (TIA), and cerebral infarction without residual deficits; Z87.891 Personal history of nicotine dependence
CPT/HCPCS: 36415; 71045; 80053; 83880; 84484; 85025; 93005; 99285

== ENCOUNTER → 2024-10-05 16:15 | Outpatient (BNVA) | payer MEDICARE, MEDICAID, SELFPAY | PROVIDERS: PCP Family Medicine; Visit Provider Internal Medicine Cardiovascular Disease | DX: I48.91 Unspecified atrial fibrillation (principal); R07.9 Chest pain, unspecified; R06.02 Shortness of breath; R60.0 Localized edema | CPT/HCPCS: 99214 ==

== ENCOUNTER 2024-10-23 07:39 | Outpatient (CLI) | payer MEDICARE, MEDICAID, SELFPAY ==
--- NOTE | 2024-10-23 | ECG_ITS ---
[employer] Test Date: 2024-10-23 Pat Name: Audelia Zacarias Department: Room: Gender: Female Gas Adjuster: : 1945 Requested By: Kirby Redd Order Number: [id number] Reading MD: KIRBY REDD Interpretive Statements Lung unchanged pre/post procedure; Intraprocedure shortess of breath; Symptoms resoled by discharge NOTE: Please note that this is the electrocardiogram portion of the Lexiscan/Sestamibi stress test. The perfusion scan will be documented separately. DATA: Baseline heart rate was 91 bpm beats per minute. Baseline blood pressure was [127/90 millimeters of mercury. Target heart rate was 140 maximum heart rate achieved was 137. which was 97% of the predicted target heart rate. Maximum blood pressure was 160/60 millimeters of mercury. The reason for ending the test was [completion of the protocol]. The patient did not experience any symptoms. ELECTROCARDIOGRAM: BASELINE: Sinus rhythm. Interventricular conduction delay, possible anterior wall old myocardial infarction, otherwise, no ST-T changes suggestive of ischemia noted. No arrhythmia noted. EXERCISE: After Lexiscan injection, no ST-T changes suggestive of ischemic noted. No arrhythmia noted. CONCLUSION: Please note due to baseline abnormality of the EKG specificity and sensitivity of the EKG portion of LexiScan MIBI stress test will be low 1. [EKG not suggestive of ischemia] 2. [Lexiscan injection unremarkable]. 3. Perfusion scan will be documented separately. [] Electronically Signed On 10-26-2024 21:18:54 MANAGER RELATIONSHIP by KIRBY REDD [id number]
[2024-10-23 08:03] VITALS: BMI 15.2
--- NOTE | 2024-10-23 08:07 | NMCV_ITS ---
NM davey perf SPECT r/s* [id number] Audelia Zacarias Age: 78 Gender: F : 1945 Exam Date: 10/23/2024 08:07 Ordering Phys: Kirby Redd MD ([email or web address]) Technologist: TERESA Quiros Exam Location: [facility] Indications: cp STRESS TEST Please see separate stress test report in [facility] for full findings IMAGE PROTOCOL Rest/Stress 1 Lexiscan Day Radiopharmaceutical Dose (mCi) Administration Site Administered by Rest: Tc-99m 10.9 IV TERESA Quiros Sestamibi Stress:Tc-99m 32.5 IV TERESA Walker Sestamibi Rest: 23-Oct-2024 60 Discovery 630 Stress: 23-Oct-2024 30 Discovery 630 0.4mg Lexiscan. Supine position only as patient was unable to lay prone. SPECT RESULTS Technical Quality: Good Raw Data Analysis: Normal Image Corrections: No attenuation or motion correction applied Summed Stress Score: 0 Summed Rest Score: 0 Summed Difference Score: 0 PERFUSION FINDINGS SPECT images demonstrate homogeneous tracer distribution throughout the myocardium. FUNCTIONAL RESULTS (calculated via Gated SPECT) Stress Image LV EF (%): 76 Stress EDV (mL):21 TID: 0.67 Stress ESV (mL):5 FUNCTIONAL FINDINGS: There is normal left ventricular systolic function. IMPRESSIONS 1. Normal myocardial perfusion imaging with no evidence of ischemia. 2. LV systolic function is normal Celestine Dorantes MD (Electronically Signed) Final Date: 23 October 2024 13:58 S
--- NOTE | 2024-10-23 09:40 | SUR.PREOP ---
PRE STRESS NOTE Patient came from [facility] in a wheel chair. Planned Exercise MIBI but on clarifying the need for the wheel chair. She states difficulty walking the distance from waiting room to each department. She fatigues easily and reports some flem in her chest making it difficult to breathe. Discussed if she would be agreeable to doing a chemical version of the test since she reports difficulty with walking. She is agreeable. Discuseed with the ordering MD and he is agreeable to the change from exercise to lexiscan. Noted and updated in the system.
[2024-10-23] MEDS: regadenoson 0.4 Mg/5 ml Syringe IVP (10:00)
[2024-10-23] MEDS: aminophylline 25 mg/mL SDV 20 mL IVP (10:15)
[2024-10-23 11:00] VITALS: BP 166/84; PULSE 85
== END 2024-10-23 07:40 | disposition home or self-care (01) ==
LOC: CDL 07:41
PROVIDERS: PCP Family Medicine; Visit Provider Internal Medicine Cardiovascular Disease
DX: R07.9 Chest pain, unspecified (principal)
CPT/HCPCS: 36415; 78452; 93017; 96374; 96375; A9500; J0280; J2785

== ENCOUNTER 2025-01-20 09:35 | Inpatient (IN) | payer MEDICARE, MEDICAID, SELFPAY ==
[2025-01-20] VITALS (13 sets, daily range): BP systolic 89–147; BP diastolic 53–91; PULSE 80–144; RESP 15–25; TEMP 36.4–36.7; O2SAT 90–99
--- NOTE | 2025-01-20 09:54 | XRR_ITS ---
PROCEDURE INFORMATION: Exam: XR Chest Exam date and time: 01/20/2025 9:37 AM Age: 79 years old Clinical indication: Prior surgery; Surgery date: 6+ months; Surgery type: Heart; PT reports feeling weak, sore throat, SOB, headache for several days. PT states she was seen at [facility] and told to come to er. PT also C/O coughing up thick green sputum; Additional info: Cough TECHNIQUE: Imaging protocol: Radiologic exam of the chest. Views: 1 view. COMPARISON: CR XR chest 1V portable [id number] 09/25/2024 9:52 AM FINDINGS: Tubes, catheters and devices: Left atrial appendage occlusion device again noted. Lungs: See Pleural spaces finding. Pleural spaces: Small pleural effusions bilaterally, cjrtt-fxezzip-djdi-left, slightly smaller on the right. Right basilar consolidation and left basilar opacities, slightly improved at the right base. Biapical scarring is again seen. Heart/Mediastinum: Unremarkable. No cardiomegaly. Bones/joints: Unremarkable. XR/XR chest 1V portable [id number] IMPRESSION: Slight decrease in right basilar opacity and small right pleural effusion.
--- NOTE | 2025-01-20 10:08 | ECG_ITS ---
[facility] Date: 2025-[facility]20 Pat Name: Audelia Zacarias Department: Room: Gender: Female Curb Machine Operator: : 1945 Requested By: Nicole Perez Order Number: [id number] Hever MD: Celestine Dorantes M.D. Measurements Intervals [place] Rate: 137 P: 0 MD: 0 QRS: 103 QRSD: 88 T: -38 QT: 233 QTc: 352 Interpretive Statements ATRIAL FIBRILLATION WITH RAPID VENTRICULAR RESPONSE RIGHT AXIS DEVIATION [QRS AXIS > 100] POSSIBLE RIGHT VENTRICULAR CONDUCTION DELAY [RSR (QR) IN V1/V2] POSSIBLE ANTERIOR MYOCARDIAL INFARCTION , PROBABLY OLD [30 ms Q WAVE IN V3/V4, OR R < 0.2 mV IN V4] Compared to ECG 09/25/2024 13:15:39 Right-axis deviation now present Myocardial infarct finding still present Electronically Signed On 01-23-2025 18:24:10 CDT by Celestine Dorantes M.D. [email or web address]
--- NOTE | 2025-01-20 10:22 | W.ED.WEAKNES ---
HPI - Weakness General: Chief complaint: Weakness Stated complaint: [facility] [place] sent, sore throat, n/d, dehydration Time Seen by Provider: 01/20/25 09:55 Source: patient Mode of arrival: ambulatory Limitations: no limitations History of Present Illness: 86-year-old female states that over the last few days she has been having nausea along with diarrhea states she is also been having a cough and some shortness of breath. She states she feels very dehydrated she was sent here from [facility] she is tachycardic and hypotensive here. Does have a history of A-fib is in A-fib with RVR denies any fevers she denies any abdominal or chest pain she has had some mild headaches as well. Associated symptoms: Reports nausea; Denies chest pain, chills, dysuria, fever(s), headache(s) or vomiting Review of Systems Const: Reports: fatigue and malaise; Denies: fever(s), chills, body aches or change in appetite Eyes: Denies: blurry vision or eye discomfort ENMT: Reports: throat pain; Denies: dental pain Card: Denies: chest pain Resp: Reports: productive cough; Denies: dyspnea GI: Reports: nausea and diarrhea; Denies: vomiting : Denies: dysuria Musc: Denies: neck pain or back pain Skin/Breast: Denies: rash Neuro: Denies: headache(s) PFSH ED PFSH: Medical History Edema Shortness of breath Cervical stenosis of spine Multilevel. Atrial fibrillation GERD (gastroesophageal reflux disease) Shingles (~10/2019) Chronic neck pain Recurrent epistaxis Eating disorder Cachexia CVA (cerebral vascular accident) (11/30/19) Thought to have been caused by clot from A. fib Surgical History S/P left atrial appendage ligation S/P breast biopsy, right (02/25/01) Benign. S/P breast biopsy, left (~1995) Benign. S/P hysterectomy (~1985) H/O heart surgery (~11/2019) Due to A. fib (after stroke). Performed at [facility]. Family History Mother CAD (coronary artery disease) Father CAD (coronary artery disease) Social History Smoking and tobacco/nicotine status: former use of tobacco/nicotine Alcohol intake: never Substance/Drug Use: never Lives independently: Yes Household members: none Housing: House Physical Exam Const: COMMON NORMALS: patient oriented x3 GENERAL APPEARANCE: ill appearing HENMT: COMMON NORMALS: normocephalic and atraumatic HEAD & SCALP: normocephalic and atraumatic THROAT: posterior oropharynx normal Eye: COMMON NORMALS: conjunctivae normal CONJUNCTIVA: Yes conjunctivae normal Neck/C-Spine: COMMON NORMALS: full ROM and supple Chest: COMMONS NORMALS: normal inspection of the chest Resp: COMMON NORMALS: normal respiratory effort, No retractions, No use of accessory muscles and clear to auscultation bilaterally AUSCULTATION: clear to auscultation bilaterally Cardio: COMMON NORMALS: No murmurs present (Cardio) RATE: tachycardic RHYTHM: abnormal rhythm irregularly irregular GI: COMMON NORMALS: Normal to inspection, nondistended, normoactive bowel sounds present, Soft to palpation, non-tender and no masses PALPATION: Yes Soft to palpation Extremity: COMMON NORMALS: normal to inspection and full ROM Neuro: COMMON NORMALS: patient oriented x3, moves all extremities and no focal motor deficits Psych: COMMON NORMALS: mental status grossly normal, Normal thought process present and cooperative THOUGHT PROCESS: Normal thought process present Skin: COMMON NORMALS: no rashes or lesions noted and no wounds GENERAL SKIN EXAM: no rashes or lesions noted Course Vital Signs: Vital signs: Vital Signs Temperature 97.6 F 01/20/25 09:49 Pulse Rate 118 H 01/20/25 11:00 Respiratory Rate 20 H 01/20/25 09:49 Blood Pressure 108/74 01/20/25 11:00 Pulse Oximetry 97 01/20/25 10:30 Oxygen Delivery Me thod Room Air 01/20/25 10:30 MDM - Weakness Medical Decision Making Patient presents here with generalized weakness with A-fib RVR and diarrhea likely has some dehydration her blood pressure here is much improved after fluids her heart rate improved as well after amiodarone x-ray showed a possible pneumonia we will get blood cultures and give antibiotics at this time white count lactate are normal. Spoke to hospitalist will admit Medical Records I reviewed the patient's medical records. Lab Data I reviewed the patient's lab results. 01/20/25 10:15 01/20/25 10:15 Radiology Impressions Chest X-Ray 01/20/25 09:54 IMPRESSION: Slight decrease in right basilar opacity and small right pleural effusion. Laboratory Results WBC 11.36 10^3/uL (3.29-11.43) 01/20/25 10:15 RBC 3.94 10^6/uL (3.85-5.65) 01/20/25 10:15 Hgb 12.50 g/dL (11.27-16.99) 01/20/25 10:15 Hct 38.2 % (36-47) 01/20/25 10:15 MCV 97.0 fl (85-98) 01/20/25 10:15 MCH 31.7 pg (27-33) 01/20/25 10:15 MCHC 32.7 g/dL (30-55) 01/20/25 10:15 RDW 15.0 % (12.1-15.1) 01/20/25 10:15 Plt Count 194 10^3/cmm (157-399) 01/20/25 10:15 MPV 10.5 fL (7.4-10.4) H 01/20/25 10:15 Neut % (Auto) 86.8 % 01/20/25 10:15 Lymph % (Auto) 2.2 % 01/20/25 10:15 Wake % (Auto) 9.8 % 01/20/25 10:15 Eos % (Auto) 0.4 % 01/20/25 10:15 Baso % (Auto) 0.3 % 01/20/25 10:15 Neut # (Auto) 9.87 10^3/uL (1.8-7.7) H 01/20/25 10:15 Lymph # (Auto) 0.3 10^3/uL (0.8-4.8) L 01/20/25 10:15 Wake # (Auto) 1.1 10^3/uL (0.2-0.9) H 01/20/25 10:15 Eos # (Auto) 0.0 10^3/uL (0.0-0.8) 01/20/25 10:15 Baso # (Auto) 0.0 10^3/uL (0.0-0.1) 01/20/25 10:15 Nucleated RBC % (auto) 0 % 01/20/25 10:15 Nucleated RBCs # 0.0 /100WBC 01/20/25 10:15 Sodium 138 mmol/L (136-145) 01/20/25 10:15 Potassium 3.5 mmol/L (3.5-5.1) 01/20/25 10:15 Chloride 99 mmol/L (98-107) 01/20/25 10:15 Carbon Dioxide 30 mmol/L (22-29) H 01/20/25 10:15 Anion Gap 12.5 (5-19) 01/20/25 10:15 BUN 21 mg/dL (8-23) 01/20/25 10:15 Creatinine 0.9 mg/dL (0.5-0.9) 01/20/25 10:15 GFR Calculation Not Reportable 01/20/25 10:15 Glucose 98 mg/dL (65-115) 01/20/25 10:15 Calculated Osmolality 289 mOsm/kg (285-295) 01/20/25 10:15 Lactic Acid 1.0 mmol/L (0.5-2.2) 01/20/25 10:15 Calcium 9.2 mg/dL (8.5-10.5) 01/20/25 10:15 Magnesium 1.9 mg/dL (1.7-2.3) 01/20/25 10:15 Total Bilirubin 0.7 mg/dL (0.15-1.2) 01/20/25 10:15 AST 19 U/L (0-32) 01/20/25 10:15 ALT 16 U/L (0-33) 01/20/25 10:15 Alkaline Phosphatase 60 U/L (35-105) 01/20/25 10:15 Total Protein 7.2 g/dL (6.6-8.7) 01/20/25 10:15 Albumin 3.9 g/dL (3.5-5.2) 01/20/25 10:15 Globulin 3.3 g/dL (1.3-4.6) 01/20/25 10:15 Lipase 28 U/L (13-60) 01/20/25 10:15 Urine Color Yellow (Yellow) 01/20/25 11:00 Urine Appearance Clear (CLEAR) 01/20/25 11:00 Urine pH 6 (5-7) 01/20/25 11:00 Ur Specific Outlook 1.015 (1.005-1.030) 01/20/25 11:00 Urine Protein Trace (Negative) 01/20/25 11:00 Urine Glucose (UA) Norm (Normal) 01/20/25 11:00 Urine Ketones Negative (Negative) 01/20/25 11:00 Urine Blood 2+ (Negative) H 01/20/25 11:00 Urine Nitrate Negative (Negative) 01/20/25 11:00 Urine Bilirubin Neg (Negative) 01/20/25 11:00 Urine Urobilinogen Norm mg/dL (Negative) 01/20/25 11:00 Ur Leukocyte Esterase Negative (Negative) 01/20/25 11:00 Urine RBC 6-10 /hpf (0-2) 01/20/25 11:00 Urine WBC 0-5 /hpf (0-5) 01/20/25 11:00 Ur Squamous Epith Cells 0-5 /hpf (0-5) 01/20/25 11:00 Amorphous Sediment Not Reportable 01/20/25 11:00 Urine Bacteria None seen /hpf (NONE) 01/20/25 11:00 Hyaline Casts 5.36 /lpf 01/20/25 11:00 Influenza A (PCR) Negative (Negative) 01/20/25 10:15 Influenza Type B (PCR) Negative (Negative) 01/20/25 10:15 RSV (PCR) Negative (Negative) 01/20/25 10:15 SARS-CoV-2 (PCR) Negative (Negative) 01/20/25 10:15 All radiology interpretation(s) finalized by discharge EKG Data EKG 1: I personally reviewed and interpreted this EKG as follows: EKG interpretation date: 01/20/25 EKG interpretation time: 10:14 Interpretation: afib with rvr hr [address] elevation qrs 88 qtc 313 Critical Care Time Critical Care Time: Critical Care Time: Yes Total Critical Care Time: 45 Attestation: The high probability of a clinically significant, sudden or life threatening deterioration of the patient's cv system(s) required my full and direct attention, intervention and personal management. The critical care time is as shown. This time is in addition to time spent performing any reported procedures but includes the following: [x] Data and vital sign review and interpretation [x] Patient assessment, examination and intervention [x] Documentation [x] Medication orders and management Discharge Plan Discharge Patient Disposition: Admitted As Inpatient Clinical Impression: Atrial fibrillation with RVR, Pneumonia, Diarrhea Condition: Stable Prescriptions: No Action verapamil 120 mg capsule,ext rel. pellets 24 hr 120 mg PO BID potassium chloride [Klor-Con 10] 10 mEq tablet extended release 10 meq PO DAILY famotidine 20 mg tablet 20 mg PO DAILY metoprolol succinate 50 mg tablet extended release 24 hr 50 mg PO DAILY montelukast [Singulair] 10 mg tablet 10 mg PO DAILY PRN (Reason: allergies) meclizine 12.5 mg tablet 25 mg PO TID PRN (Reason: Nausea And Vomiting) furosemide 40 mg tablet 20 mg PO BID Qty: 90 3RF sertraline 25 mg tablet 25 mg PO DAILY oxybutynin chloride 5 mg tablet extended release 24hr 5 mg PO DAILY Qty: 30 0RF atorvastatin 40 mg tablet 40 mg PO DAILY [facility] Immunity Support 10 mg iron Tablet,Chewable 2 tab PO DAILY Referrals: Mark Kraus MD [Primary Care Provider] - Print Language: [place] Coding Level of Care Code ED Destination Specialist for Chg Fwd Related Data Home Medications ?Medication ?Instructions ?Recorded ?Confirmed famotidine 20 mg tablet 20 mg PO DAILY 03/04/20 10/05/24 metoprolol succinate 50 mg 50 mg PO DAILY 03/04/20 10/05/24 tablet,extended release 24 hr potassium chloride 10 mEq 10 meq PO DAILY 03/04/20 10/05/24 tablet,extended release (Klor-Con) montelukast 10 mg tablet 10 mg PO DAILY PRN allergies 08/25/20 10/05/24 (Singulair) verapamil 120 mg 24 hr 120 mg PO BID 09/21/21 10/05/24 capsule,extended release meclizine 12.5 mg tablet 25 mg PO TID PRN Nausea And 08/28/24 10/05/24 Vomiting sertraline 25 mg tablet 25 mg PO DAILY 08/28/24 10/05/24 atorvastatin 40 mg tablet 40 mg PO DAILY 09/25/24 10/05/24 pediatric multivitamin 2 tab PO DAILY 09/25/24 10/05/24 no.239-ferrous sulfate 10 mg chewable tablet ([facility] Immunity Support) Previous Rx's ?Medication ?Instructions ?Recorded furosemide 40 mg tablet 20 mg (1/2 x 40 mg) PO BID #90 tabs 07/14/20 oxybutynin chloride 5 mg 5 mg PO DAILY #30 tabs 08/28/24 tablet,extended release 24 hr Allergies Allergy/AdvReac Type Severity Reaction Status Date / Time Penicillins Allergy passed out Verified 10/05/24 16:25
[2025-01-20] MEDS: sodium chloride 0.9% 1,000 ML 999 ML IV ×2 (10:30)
[2025-01-20] MEDS: ondansetron 2 mg/ML SDV 2 mL 4 MG IVP (10:30)
[2025-01-20 10:36] LABS: Basophils % 0.3 %; Eosinophils % 0.4 %; Hematocrit 38.2 % (36-47); Lymphocytes # 0.3 10^3/uL (0.8-4.8); Lymphocytes % 2.2 %; Mean Corpuscular HGB Conc 32.7 g/dL (30-55); Mean Corpuscular Hemoglobin 31.7 pg (27-33); Mean Platelet Volume 10.5 fL (7.4-10.4); Monocytes # 1.1 10^3/uL (0.2-0.9); Monocytes % 9.8 %; Neutrophils # 9.87 10^3/uL (1.8-7.7); Neutrophils % 86.8 %; Nucleated Red Blood Cells % 0 %; Platelet Count 194 10^3/cmm (157-399); Red Blood Count 3.94 10^6/uL (3.85-5.65); White Blood Count 11.36 10^3/uL (3.29-11.43)
[2025-01-20 11:03] LABS: Alanine Aminotransferase 16 U/L (0-33); Albumin Level 3.9 g/dL (3.5-5.2); Alkaline Phosphatase 60 U/L (35-105); Anion Gap 12.5 (5-19); Aspartate Amino Transferase 19 U/L (0-32); Blood Urea Nitrogen 21 mg/dL (8-23); Calcium 9.2 mg/dL (8.5-10.5); Carbon Dioxide 30 mmol/L (22-29); Chloride 99 mmol/L (98-107); Creatinine Clr Calc Pharmacy 31.9451; Globulin 3.3 g/dL (1.3-4.6); Glucose 98 mg/dL (65-115); Lipase 28 U/L (13-60); Magnesium 1.9 mg/dL (1.7-2.3); Osmolality Calculated 289 mOsm/kg (285-295); Potassium 3.5 mmol/L (3.5-5.1); Sodium 138 mmol/L (136-145); Total Bilirubin 0.7 mg/dL (0.15-1.2); Total Protein 7.2 g/dL (6.6-8.7)
[2025-01-20] MEDS: amiodarone 150 MG/100 ML PREMIX 400 MG IV (11:04)
[2025-01-20 11:20] LABS: Bacteria Urine None Seen /hpf; Hyaline Casts Urine 5.36 /lpf; Squamous Epithelial Cell Urine 0-5 /hpf (0-5); WBC Urine 0-5 /hpf (0-5)
[2025-01-20 11:23] LABS: Add Urine Culture? No; Add Urine Microscopic? YES; Bilirubin Urine Neg (Negative); Blood Urine 2+ (Negative); Glucose Urine UA Norm (Normal); Ketones Urine Negative (Negative); Leukocyte Esterase Urine Negative (Negative); Nitrate Urine Negative (Negative); Protein Urine Trace (Negative); Specific Gravity, Urine 1.015 (1.005-1.030); Urine Appearance Clear (CLEAR); Urine Color Yellow (Yellow); Urobilinogen Urine Norm (Negative); pH Urine 6 (5-7)
[2025-01-20 11:23] LABS: Influenza A NEGATIVE (Negative); Influenza B NEGATIVE (Negative); Respiratory Syncytial Virus Ce NEGATIVE (Negative); SARS-CoV-2 PCR NEGATIVE (Negative)
[2025-01-20] MEDS: AZITHROMYCIN ADD-Vantage 500 MG in 0.9% NaCl ADD-Vantage 250 ML 250 MG IV (11:54)
[2025-01-20] MEDS: cefTRIAXone 1,000 mg SDV 1000 MG IVP (11:55)
[2025-01-20] MEDS: lanolin oint 7 gm 1 APPLIC TOPICAL (17:15)
--- NOTE | 2025-01-20 17:45 | PM.HP ---
Providers/Chief Complaint Admitting Physician: Lianne Rajan MD Primary Care Provider: Mark Kraus MD Chief Complaint: [facility] [place] sent, sore throat, n/d, dehydration History of Present Illness Audelia Zacarias is a 79 year old female history of atrial fibrillation and underwent a left atrial appendage ligation in the past, h/o CVA who was sent over from her primary care physician's office after being found to be in A-fib RVR. When she was visiting her PCP, she had initially complained of some persistent sore throat over the last 2 to 3 weeks. They found her to be in A-fib RVR and directed her to the emergency room. Here her heart rate was found to be between 1 30-1 40 in A-fib. Patient states she has been in A-fib intermittently but does not seem to notice it very much and has not been bothered by it. She is not on any chronic anticoagulation because of a history of recurrent nosebleeds. She states she has intermittent palpitations but has never started to check her heart rate. She resumed it since she had the ligation procedure A-fib with no longer be an issue. She denies any shortness of breath. Denies any chest pain. Denies any recent fever. History of reflux present. Patient was hypotensive upon admission with blood pressure of 89/66. She was initiated on amiodarone infusion and her blood pressure is improved currently at 100/64 at the time of this assessment. Normal mental status changes. Patient states she has been compliant with taking verapamil and metoprolol at home at the recommended doses. Review of Systems General: Reports: 10 or more systems reviewed and unremarkable except in HPI and below Const: Denies: fever(s), chills or body aches Eyes: Denies: change in vision, blurry vision or photophobia ENMT: Reports: hoarseness; Denies: throat pain, enlarged tonsils, odynophagia or nasal congestion Card: Denies: chest pain, palpitations, irregular heart rhythm, edema, swelling of feet/ankles, lightheadedness, pre-syncope, dyspnea on exertion or orthopnea Resp: Denies: dyspnea, productive cough, non-productive cough, wheezing, stridor, pain on inspiration, change in phlegm color, hemoptysis or chest congestion GI: Denies: abdominal pain, nausea, vomiting, hematemesis, coffee ground emesis, dysphagia, heartburn, diarrhea, constipation, GI cramping, change in stool character, hematochezia or melena : Denies: flank pain, difficulty voiding, dysuria, urinary frequency, urinary urgency, urinary hesitancy or hematuria Musc: Denies: neck pain, back pain, extremity pain, joint swelling, joint warmth or deformity Neuro: Denies: headache(s), numbness in extremities, weakness in extremities, sensory changes, difficulty walking, frequent falls, dizziness, vertigo, behavioral changes, Slurred speech present or seizure-like activity Psych: Denies: anxiety, depression, suicidal ideation or homicidal ideation Endo: Denies: polyuria, polydipsia, tired all the time, cold intolerance or hot flashes [place]/Lymph: Denies: easy bruising or easy bleeding Medications/Allergies Home Medications ?Medication ?Instructions ?Recorded ?Confirmed ?Last Taken ?Type metoprolol succinate 50 mg 50 mg PO DAILY 03/04/20 01/20/25 01/19/25 History tablet,extended release 24 hr potassium chloride 10 mEq 10 meq PO DAILY 03/04/20 01/20/25 01/20/25 History tablet,extended release (Klor-Con) furosemide 40 mg tablet 20 mg (1/2 x 40 mg) PO BID #90 tabs 07/14/20 01/20/25 01/19/25 Rx verapamil 120 mg 24 hr 120 mg PO BID 09/21/21 01/20/25 01/19/25 History capsule,extended release atorvastatin 40 mg tablet 40 mg PO DAILY 09/25/24 01/20/25 01/19/25 History pediatric multivitamin 2 tab PO DAILY 09/25/24 01/20/25 01/19/25 History no.239-ferrous sulfate 10 mg chewable tablet ([facility] Immunity Support) famotidine 20 mg tablet 20 mg PO BID 01/20/25 01/20/25 01/19/25 History fexofenadine 60 mg tablet 30 - 60 mg PO BID PRN Allergic 01/20/25 01/20/25 01/19/25 History Symptoms prednisone 10 mg tablet 10 mg PO DAILY 01/20/25 01/20/25 01/19/25 History vit C 180 mg-D3 10 mcg-zinc 5.5 1 cap PO DAILY 01/20/25 01/20/25 01/19/25 History ch-jukwfn-scwkqxe-alejandra-herb capsule (Immune Support (vit c, d and zinc)) Allergies Allergy/AdvReac Type Severity Reaction Status Date / Time Penicillins Allergy passed out Verified 10/05/24 16:25 PFSH Acute PFSH: Medical History Edema Shortness of breath Cervical stenosis of spine Multilevel. Atrial fibrillation GERD (gastroesophageal reflux disease) Shingles (~10/2019) Chronic neck pain Recurrent epistaxis Eating disorder Cachexia CVA (cerebral vascular accident) (11/30/19) Thought to have been caused by clot from A. fib Surgical History S/P left atrial appendage ligation S/P breast biopsy, right (02/25/01) Benign. S/P breast biopsy, left (~1995) Benign. S/P hysterectomy (~1985) H/O heart surgery (~11/2019) Due to A. fib (after stroke). Performed at [facility]. Family History Mother CAD (coronary artery disease) Father CAD (coronary artery disease) Social History Smoking and tobacco/nicotine status: former use of tobacco/nicotine Alcohol intake: never Substance/Drug Use: never Lives independently: Yes Household members: none Housing: House Vitals/I&O/Wt Last Vital Signs Temp 97.6 F 01/20/25 09:49 Pulse 98 01/20/25 14:27 Resp 18 01/20/25 14:27 BP 107/58 01/20/25 14:27 Pulse Ox 94 01/20/25 14:27 O2 Del Method Room Air 01/20/25 14:00 01/20/25 01/20/25 01/20/25 06:59 14:59 22:59 Intake Total 2350 / 2350 192.203 / 2542.203 Balance 2350 / 2350 192.203 / 2542.203 Weight last 48 hrs Weight 47.627 kg Weight 41.277 kg Physical Exam Narrative: General: No acute distress, AO x3 HEENT: PERRLA, pupils bilaterally equal and reactive, pallors not present Chest: Normal vesicular breath sounds, no added sounds, equal good air entry bilaterally CVS: S1-S2 regular, no murmurs, no tachycardia, no gallops, no rubs Abdomen: Soft, nontender, no organomegaly, bowel sounds present Neuro: No focal deficits, no facial deformity, AO x3, power 5/5 in all limbs Data 01/21/25 02:55 01/21/25 02:55 Micro: Microbiology 01/20/25 10:25 Blood Culture - Preliminary Blood SPECIMEN COLLECTED 01/20/25 10:21 Blood Culture - Preliminary Blood SPECIMEN COLLECTED A&P Assessment and plan (1) Atrial fibrillation with RVR: (2) Hypotension: Plan Patient presenting today with A-fib RVR Per available history it appears patient may have been in and out of A-fib for a while. She was evaluated in September 2024 as an outpatient at which time a cardiac stress test was recommended due to complaints of shortness of breath. Stress test was grossly normal without evidence of ischemia performed on October 23, 2024. Troponin series today without any significant elevation. Does not appear to be in CHF at this time. Continue amiodarone infusion as started in the emergency room. Once heart rate is better controlled will attempt to overlap with oral amiodarone. Lower dose of metoprolol at 12.5 mg p.o. twice daily due to soft blood pressure. Will uptitrate as tolerated. Hold verapamil for now. Continue home dose of Lasix 20 mg daily. Patient complains of an ongoing sore throat for the past 2 weeks. Negative for influenza RSV and COVID PCR today. Chest x-ray shows small bilateral pleural effusions right greater than left and a right basilar opacity, no overall does not show any signs of pneumonia such as cough or fever. She has received azithromycin and ceftriaxone in the emergency room. Will continue coverage for possible pneumonia with levofloxacin. PDMP PDMP Reviewed: Not Reviewed Attestations Medical Necessity Statement*: Greater than 2 midnight stay is anticipated for control of A-fib with RVR. Coding Level of Care Code Acute Code for [facility] Diagnoses Atrial fibrillation with RVR I48.91 Hypotension I95.9
[2025-01-20 18:13] LABS: D Dimer 2.98 ug/mLFEU (0-0.59)
[2025-01-20] MEDS: metoprolol tartrate 25 mg Tablet 12.5 MG PO (22:33)
[2025-01-21] VITALS (7 sets, daily range): BP systolic 108–124; BP diastolic 56–71; PULSE 69–99; RESP 19–25; TEMP 36.4–37.1; O2SAT 90–97
[2025-01-21 03:13] LABS: Basophils % 0.1 %; Eosinophils # 0.1 10^3/uL (0.0-0.8); Eosinophils % 1.9 %; Hematocrit 36.3 % (36-47); Lymphocytes # 0.4 10^3/uL (0.8-4.8); Mean Corpuscular HGB Conc 31.1 g/dL (30-55); Mean Corpuscular Volume 99.5 fl (85-98); Mean Platelet Volume 10.3 fL (7.4-10.4); Monocytes # 0.9 10^3/uL (0.2-0.9); Monocytes % 13.1 %; Neutrophils # 5.54 10^3/uL (1.8-7.7); Neutrophils % 79.6 %; Nucleated Red Blood Cells % 0 %; Platelet Count 181 10^3/cmm (157-399); Red Blood Count 3.65 10^6/uL (3.85-5.65); White Blood Count 6.96 10^3/uL (3.29-11.43)
[2025-01-21 03:44] LABS: Alanine Aminotransferase 12 U/L (0-33); Albumin Level 3.5 g/dL (3.5-5.2); Alkaline Phosphatase 60 U/L (35-105); Anion Gap 11.2 (5-19); Aspartate Amino Transferase 16 U/L (0-32); Blood Urea Nitrogen 17 mg/dL (8-23); Calcium 8.4 mg/dL (8.5-10.5); Carbon Dioxide 28 mmol/L (22-29); Chloride 106 mmol/L (98-107); Creatinine Clr Calc Pharmacy 37.0907; Globulin 2.8 g/dL (1.3-4.6); Glucose 89 mg/dL (65-115); Osmolality Calculated 295 mOsm/kg (285-295); Potassium 3.2 mmol/L (3.5-5.1); Sodium 142 mmol/L (136-145); Thyroid Stimulating Hormone 4.13 uIU/mL (0.27-4.20); Total Bilirubin 0.2 mg/dL (0.15-1.2); Total Protein 6.3 g/dL (6.6-8.7)
[2025-01-21] MEDS: FUROsemide 40 mg Tablet 20 MG PO (08:08)
[2025-01-21] MEDS: metoprolol tartrate 25 mg Tablet 12.5 MG PO (08:10)
[2025-01-21] MEDS: predniSONE 10 mg Tablet PO (08:10)
[2025-01-21] MEDS: atorvastatin 40 mg Tablet PO (08:11)
[2025-01-21] MEDS: fexofenadine 60 mg Tablet PO (08:49)
--- NOTE | 2025-01-21 09:47 | PC.CHAP ---
Pastoral Care Encounter/Spiritual Assessment Type of Contact [] Declined asset protection specialist visit [] Patient/Family/Request visit [] Outpatient visit [] Follow-up visit [] Physician referral [] Code/Alert [x] Routine visit [] Staff referral [] Actively dying [] Patient sleeping [] Family support [] [] Out of room [] Palliative care [] [] Receiving care in room [] Pre-surgical visit [] Trauma [] Long length of stay [] ICU visit [] Other: Relational/Emotional Strength [x] Patient feels connected with others/family/visitors/staff [] Distress [] Loneliness/isolation [] Abandonment Spirituality of Patient [x] Person of Pavithra [] Attends Jew of their Pavithra [x] Believes in Prayer [] Reads Bible or Gnosticism materials [] There are Spiritual issues to be addressed [employer] Interventions [x] Prayer [x] Active listening [] Non-anxious presence [x] Spiritual/emotional support [] Crisis/trauma care [] Spiritual counseling [] Bereavement support [] Provided bereavement packet [] Provided Bible/devotional materials [] Provided toy/stuffed animal, coloring book to patient or family member [] Provided Communion [] Anointing/[place] [] Salvation [x] Completed spiritual assessment [] Other: Impact on Illness or Injury [] Angry [] Fearful [] Anxious [] Often cries [] Exhaustion [] Unable to work [] Unable to attend tenriism [] Unable to walk/stand [] Unable to read [] Unable to drive [] Unable to eat/drink [] Unable to sleep [] Unable to be with family [] Patient intubated [] Other: Summary Time spent with patient 5 min
[2025-01-21] MEDS: amiodarone 200 mg Tablet 400 MG PO ×2 (10:10→17:07)
[2025-01-21] MEDS: pantoprazole DR 40 mg Tablet PO (10:10)
--- NOTE | 2025-01-21 10:53 | P.PN_ITS ---
Subjective 2 Subjective: Heart rate is much better controlled today. Mostly ranging between 70 to 90 bpm. Medications: Reviewed: Yes Vitals/I&O/Wt Last Vital Signs Temp 97.6 F 01/21/25 07:43 Pulse 86 01/21/25 07:43 Resp 21 H 01/21/25 07:43 BP 108/56 01/21/25 07:43 Pulse Ox 93 01/21/25 07:43 O2 Del Method Room Air 01/21/25 07:43 01/20/25 01/21/25 01/21/25 22:59 06:59 14:59 Intake Total 192.203 / 2542.203 200 / 2742.203 191.959 / 191.959 Balance 192.203 / 2542.203 200 / 2742.203 191.959 / 191.959 Weight last 48 hrs Weight 50.938 kg Weight 47.627 kg Weight 41.277 kg Physical Exam 2 Narrative: General: No acute distress, AO x3 HEENT: PERRLA, pupils bilaterally equal and reactive, pallors not present Chest: Normal vesicular breath sounds, no added sounds, equal good air entry bilaterally CVS: S1-S2 regular, no murmurs, no tachycardia, no gallops, no rubs Abdomen: Soft, nontender, no organomegaly, bowel sounds present Neuro: No focal deficits, no facial deformity, AO x3, power 5/5 in all limbs Data 01/21/25 02:55 01/21/25 02:55 Micro: Microbiology 01/20/25 10:25 Blood Culture - Preliminary Blood NEGATIVE TO DATE 01/20/25 10:21 Blood Culture - Preliminary Blood NEGATIVE TO DATE A&P Assessment and plan (1) Atrial fibrillation with RVR: (2) Hypotension: Plan Patient presenting today with A-fib RVR Per available history it appears patient may have been in and out of A-fib for a while. She was evaluated in September 2024 as an outpatient at which time a cardiac stress test was recommended due to complaints of shortness of breath. Stress test was grossly normal without evidence of ischemia performed on October 23, 2024. Troponin series today without any significant elevation. Does not appear to be in CHF at this time. Continue amiodarone infusion as started in the emergency room. Once heart rate is better controlled will attempt to overlap with oral amiodarone. Lower dose of metoprolol at 12.5 mg p.o. twice daily due to soft blood pressure. Will uptitrate as tolerated. Hold verapamil for now. Continue home dose of Lasix 20 mg daily. Patient complains of an ongoing sore throat for the past 2 weeks. Negative for influenza RSV and COVID PCR today. Chest x-ray shows small bilateral pleural effusions right greater than left and a right basilar opacity, no overall does not show any signs of pneumonia such as cough or fever. She has received azithromycin and ceftriaxone in the emergency room. Will continue coverage for possible pneumonia with levofloxacin. January 21, 2025 A-fib is better controlled today. Heart rate between 70-90. Will transition to oral amiodarone 400 mg twice daily and titrate. If blood pressure allows will uptitrate her beta-blockers additionally. Continue to hold verapamil as blood pressure is soft at 108/56. Still has drip in the back of her throat. Unwilling to try Flonase nasal spray due to history of nasal bleeding. Continue with Andreia. Encouraged to take Protonix as GERD may be potentially contributing. She had refused the medication earlier this morning as she is hesitant to take additional medications. Patient reports she has had a past history of GERD for which she has seen gastroenterology in the past. Per description it appears she may have had an EGD in the past however does not recall the details. PDMP PDMP Reviewed: Not Reviewed Attestations 2 Medical Necessity Statement*: Transition IV to oral amiodarone and closely monitor her heart rate. Coding Level of Care Code Acute Code for [facility] Diagnoses Atrial fibrillation with RVR I48.91 Hypotension I95.9
[2025-01-21] MEDS: levoFLOXacin 750 mg Tablet PO (13:00)
[2025-01-21] MEDS: metoprolol tartrate 25 mg Tablet PO (20:51)
[2025-01-22] VITALS: BP 125/66; PULSE 92; RESP 19; O2SAT 96
[2025-01-22 03:23] LABS: Basophils % 0.1 %; Eosinophils # 0.1 10^3/uL (0.0-0.8); Eosinophils % 1.2 %; Hematocrit 34.7 % (36-47); Lymphocytes # 0.4 10^3/uL (0.8-4.8); Lymphocytes % 5.5 %; Mean Corpuscular HGB Conc 31.4 g/dL (30-55); Mean Corpuscular Hemoglobin 31.1 pg (27-33); Mean Corpuscular Volume 99.1 fl (85-98); Mean Platelet Volume 10.3 fL (7.4-10.4); Neutrophils # 6.14 10^3/uL (1.8-7.7); Neutrophils % 79.9 %; Nucleated Red Blood Cells % 0 %; Platelet Count 169 10^3/cmm (157-399); White Blood Count 7.68 10^3/uL (3.29-11.43)
[2025-01-22 03:49] LABS: Alanine Aminotransferase 12 U/L (0-33); Albumin Level 3.2 g/dL (3.5-5.2); Alkaline Phosphatase 57 U/L (35-105); Anion Gap 12.1 (5-19); Aspartate Amino Transferase 18 U/L (0-32); Blood Urea Nitrogen 20 mg/dL (8-23); Calcium 8.5 mg/dL (8.5-10.5); Carbon Dioxide 26 mmol/L (22-29); Chloride 106 mmol/L (98-107); Creatinine Clr Calc Pharmacy 34.5574; Glucose 103 mg/dL (65-115); Osmolality Calculated 295 mOsm/kg (285-295); Potassium 3.1 mmol/L (3.5-5.1); Sodium 141 mmol/L (136-145); Total Bilirubin 0.3 mg/dL (0.15-1.2); Total Protein 6.2 g/dL (6.6-8.7)
[2025-01-22 04:00] VITALS: BP 110/60; PULSE 103; RESP 18; O2SAT 97
[2025-01-22 07:44] VITALS: BP 102/60; PULSE 73; RESP 18; TEMP 36.7; O2SAT 96
--- NOTE | 2025-01-22 08:25 | PC.SOCIAL ---
IMM Update Pg. 2 of IMM updated and reviewed with patient, who verbalized understanding. Copy provided.
[2025-01-22] MEDS: FUROsemide 40 mg Tablet 20 MG PO (08:34)
[2025-01-22] MEDS: atorvastatin 40 mg Tablet PO (08:34)
[2025-01-22] MEDS: predniSONE 10 mg Tablet PO (08:34)
[2025-01-22] MEDS: pantoprazole DR 40 mg Tablet PO (08:34)
[2025-01-22] MEDS: amiodarone 200 mg Tablet 400 MG PO (08:36)
[2025-01-22] MEDS: metoprolol tartrate 25 mg Tablet PO (08:37)
--- NOTE | 2025-01-22 10:14 | PC.NURSE ---
21 event monitor placed. Instruction provided on how to use and change. Patient verbalized understanding. Reports having had a monitor in the past. She will have her live person to help her if needed.
[2025-01-22 12:00] VITALS: BP 116/60; PULSE 80; RESP 18; TEMP 36.6; O2SAT 97
[2025-01-22] MEDS: potassium chloride oral liq 20 mEq/15 mL UDC 40 MEQ PO (14:57)
[2025-01-22 16:00] VITALS: BP 122/74; PULSE 94; RESP 23; TEMP 36.8
--- NOTE | 2025-01-22 16:29 | P.DS_ITS ---
Discharge Providers Date of Admission: 01/20/25 12:02 Date of Discharge: January 22, 2025 Attending Provider at Admission: Lianne Rajan MD Attending Provider at Discharge: Lianne Rajan MD Primary Care Provider: Mark Kraus MD Diagnoses at Discharge Discharge Diagnosis (1) Atrial fibrillation with RVR: Status: Acute (2) Hypotension: Status: Acute Reason for Visit Reason for Visit: [place] sent, sore throat, n/d, dehydration Hospital Course Hospital Course Audelia Zacarias is a 79 year old female history of atrial fibrillation and underwent a left atrial appendage ligation in the past, h/o CVA who was sent over from her primary care physician's office after being found to be in A-fib RVR. When she was visiting her PCP, she had initially complained of some persistent sore throat over the last 2 to 3 weeks. They found her to be in A- fib RVR and directed her to the emergency room. Here her heart rate was found to be between 1 30-1 40 in A-fib. Patient states she has been in A-fib intermittently but does not seem to notice it very much and has not been bothered by it. She is not on any chronic anticoagulation because of a history of recurrent nosebleeds.She denies any shortness of breath. Denies any chest pain. Denies any recent fever. History of reflux present. Patient was hypotensive upon admission with blood pressure of 89/66. She was initiated on amiodarone infusion and her blood pressure improved with control of her heart rate. Patient was eventually able to have controlled heart rate between 60 to 90 bpm. Rhythm remained A-fib. An event monitor ordering at the time of discharge to estimate AF burden. Follow-up set up with cardiology on February 04, 2025 for review of event monitor and further intervention. Patient currently feels better. Metoprolol 50 mg daily was continued. Verapamil was discontinued due to soft blood pressure. Patient had also complained of a persistent sore throat lasting many weeks. This was thought to be related to reflux. Trial of Protonix was given in the hospital and patient states she felt better with reflux symptoms Taking the Protonix. This has been added to her regimen at the time of discharge. She requested switching from tablet preparation to liquid preparation of KCl at the time of discharge which has additionally been added. She is being discharged in improved condition today. She declined anticoagulation due to h/o nose bleeding Physical Exam Narrative: General: No acute distress, AO x3 HEENT: PERRLA, pupils bilaterally equal and reactive, pallors not present Chest: Normal vesicular breath sounds, no added sounds, equal good air entry bilaterally CVS: S1-S2 regular, no murmurs, no tachycardia, no gallops, no rubs Abdomen: Soft, nontender, no organomegaly, bowel sounds present Neuro: No focal deficits, no facial deformity, AO x3, power 5/5 in all limbs Discharge Data Studies Completed and Pending Completed Studies During Hospitalization Category Date Time Status XR chest 1V portable [id number] Stat Exams 01/20/25 09:54 Completed Pending at discharge Category Date Time Status Blood Culture Stat Lab 01/20/25 10:25 Results Radiology Impressions Chest X-Ray 01/20/25 09:54 IMPRESSION: Slight decrease in right basilar opacity and small right pleural effusion. Laboratory Results WBC 7.68 10^3/uL (3.29-11.43) 01/22/25 02:58 RBC 3.50 10^6/uL (3.85-5.65) L 01/22/25 02:58 Hgb 10.90 g/dL (11.27-16.99) L 01/22/25 02:58 Hct 34.7 % (36-47) L 01/22/25 02:58 MCV 99.1 fl (85-98) H 01/22/25 02:58 MCH 31.1 pg (27-33) 01/22/25 02:58 MCHC 31.4 g/dL (30-55) 01/22/25 02:58 RDW 15.0 % (12.1-15.1) 01/22/25 02:58 Plt Count 169 10^3/cmm (157-399) 01/22/25 02:58 MPV 10.3 fL (7.4-10.4) 01/22/25 02:58 Neut % (Auto) 79.9 % 01/22/25 02:58 Lymph % (Auto) 5.5 % 01/22/25 02:58 [place] % (Auto) 13.0 % 01/22/25 02:58 Eos % (Auto) 1.2 % 01/22/25 02:58 Baso % (Auto) 0.1 % 01/22/25 02:58 Neut # (Auto) 6.14 10^3/uL (1.8-7.7) 01/22/25 02:58 Lymph # (Auto) 0.4 10^3/uL (0.8-4.8) L 01/22/25 02:58 [place] # (Auto) 1.0 10^3/uL (0.2-0.9) H 01/22/25 02:58 Eos # (Auto) 0.1 10^3/uL (0.0-0.8) 01/22/25 02:58 Baso # (Auto) 0.0 10^3/uL (0.0-0.1) 01/22/25 02:58 Nucleated RBC % (auto) 0 % 01/22/25 02:58 Nucleated RBCs # 0.0 /100WBC 01/22/25 02:58 D-Dimer 2.98 ug/mLFEU (0-0.59) H 01/20/25 10:15 Sodium 141 mmol/L (136-145) 01/22/25 02:58 Potassium 3.1 mmol/L (3.5-5.1) L 01/22/25 02:58 Chloride 106 mmol/L (98-107) 01/22/25 02:58 Carbon Dioxide 26 mmol/L (22-29) 01/22/25 02:58 Anion Gap 12.1 (5-19) 01/22/25 02:58 BUN 20 mg/dL (8-23) 01/22/25 02:58 Creatinine 1.1 mg/dL (0.5-0.9) H 01/22/25 02:58 GFR Calculation Not Reportable 01/22/25 02:58 Glucose 103 mg/dL (65-115) 01/22/25 02:58 Calculated Osmolality 295 mOsm/kg (285-295) 01/22/25 02:58 Lactic Acid 1.0 mmol/L (0.5-2.2) 01/20/25 10:15 Calcium 8.5 mg/dL (8.5-10.5) 01/22/25 02:58 Magnesium 1.9 mg/dL (1.7-2.3) 01/20/25 10:15 Total Bilirubin 0.3 mg/dL (0.15-1.2) 01/22/25 02:58 AST 18 U/L (0-32) 01/22/25 02:58 ALT 12 U/L (0-33) 01/22/25 02:58 Alkaline Phosphatase 57 U/L (35-105) 01/22/25 02:58 Total Protein 6.2 g/dL (6.6-8.7) L 01/22/25 02:58 Albumin 3.2 g/dL (3.5-5.2) L 01/22/25 02:58 Globulin 3.0 g/dL (1.3-4.6) 01/22/25 02:58 Lipase 28 U/L (13-60) 01/20/25 10:15 TSH 4.13 uIU/mL (0.27-4.20) 01/21/25 02:55 Urine Color Yellow (Yellow) 01/20/25 11:00 Urine Appearance Clear (CLEAR) 01/20/25 11:00 Urine pH 6 (5-7) 01/20/25 11:00 Ur Specific [place] 1.015 (1.005-1.030) 01/20/25 11:00 Urine Protein Trace (Negative) 01/20/25 11:00 Urine Glucose (UA) Norm (Normal) 01/20/25 11:00 Urine Ketones Negative (Negative) 01/20/25 11:00 Urine Blood 2+ (Negative) H 01/20/25 11:00 Urine Nitrate Negative (Negative) 01/20/25 11:00 Urine Bilirubin Neg (Negative) 01/20/25 11:00 Urine Urobilinogen Norm mg/dL (Negative) 01/20/25 11:00 Ur Leukocyte Esterase Negative (Negative) 01/20/25 11:00 Urine RBC 6-10 /hpf (0-2) 01/20/25 11:00 Urine WBC 0-5 /hpf (0-5) 01/20/25 11:00 Ur Squamous Epith Cells 0-5 /hpf (0-5) 01/20/25 11:00 Amorphous Sediment Not Reportable 01/20/25 11:00 Urine Bacteria None seen /hpf (NONE) 01/20/25 11:00 Hyaline Casts 5.36 /lpf 01/20/25 11:00 Influenza A (PCR) Negative (Negative) 01/20/25 10:15 Influenza Type B (PCR) Negative (Negative) 01/20/25 10:15 RSV (PCR) Negative (Negative) 01/20/25 10:15 SARS-CoV-2 (PCR) Negative (Negative) 01/20/25 10:15 Vitals Last Vital Signs Temp 97.8 F 01/22/25 12:00 Pulse 80 01/22/25 12:00 Resp 18 01/22/25 12:00 BP 116/60 01/22/25 12:00 Pulse Ox 97 01/22/25 12:00 O2 Del Method Room Air 01/22/25 12:00 Discharge Plan Discharge Patient Disposition: Home Condition: Stable Prescriptions: New amiodarone [Pacerone] 200 mg Tablet See Rx Instructions .ROUTE .COMPLEX Qty: 30 0RF Rx Instructions: 400mg BID x5d, then 200mg BID x5d, then 200mg daily levofloxacin 750 mg Tablet 750 mg PO Q48H 3 Days Qty: 2 0RF pantoprazole [Protonix] 40 mg tablet,delayed release (DR/EC) 40 mg PO DAILY 28 Days Qty: 30 0RF potassium chloride 20 mEq/15 mL liquid 10 meq PO DAILY Qty: 450 0RF Continued metoprolol succinate 50 mg tablet extended release 24 hr 50 mg PO DAILY atorvastatin 40 mg tablet 40 mg PO DAILY Flintstones Immunity Support 10 mg iron Tablet,Chewable 2 tab PO DAILY fexofenadine 60 mg tablet 30 - 60 mg PO BID PRN (Reason: Allergic Symptoms) prednisone 10 mg tablet 10 mg PO DAILY Immune Support (vit c,d,zinc) 180 mg-10 mcg- 5.5 mg-150 mg Capsule 1 cap PO DAILY Changed furosemide 40 mg tablet 20 mg PO DAILY Qty: 90 3RF Discontinued verapamil 120 mg capsule,ext rel. pellets 24 hr 120 mg PO BID potassium chloride [Klor-Con 10] 10 mEq tablet extended release 10 meq PO DAILY famotidine 20 mg tablet 20 mg PO BID Discharge Orders: Discharge Order (Routine); Ordered 01/22/25 Ordered By: Lianne Rajan Referrals: Monica Orosco FNP [Nurse Practitioner] - 02/04/25 2:30 pm Mark Kraus MD [Primary Care Provider] - 02/03/25 12:00 pm Patient Instructions: Amiodarone (By mouth), Levofloxacin (By mouth), A-fib (Atrial Fibrillation) (DC), Chronic Hypertension (DC), Opioid Safety Discharge Attestations Time Spent in Discharge Care*: greater than 30 min Quality Metrics Clinical Quality Measures [ No reported AMI, CVA or VTE this stay] Coding Level of Care Code Acute Code for Chg Fwd Diagnoses Atrial fibrillation with RVR I48.91 Hypotension I95.9
--- NOTE | 2025-01-22 17:45 | PC.NURSE ---
Patient discharged to home. Instruction provided regarding follow up information new medications with changes and event monitor. Patient verbalized complete understanding. Patient taken by wheelchair to private vehicle. Denies pain or needs. No distress observed.
== END 2025-01-22 17:47 | disposition home or self-care (01) | DRG 310 ==
LOC: ER 11:56 → ER IP 12:02 → CSU 13:35
PROVIDERS: Emergency Medicine; Student in an Organized Health Care Education/Training Program; Admitting Provider Student in an Organized Health Care Education/Training Program; Emergency Provider Emergency Medicine; PCP Family Medicine; Visit Provider Student in an Organized Health Care Education/Training Program
DX: I48.91 Unspecified atrial fibrillation (principal); I95.9 Hypotension, unspecified; K21.9 Gastro-esophageal reflux disease without esophagitis
CPT/HCPCS: 36415; 71045; 80053; 81001; 83605; 83690; 83735; 84443; 85025; 85378; 87040; 87637; 93005; 96365; 96375; 96376; 99285; A4222; A9270; J0283; J0456; J0696; J2405; J7030; J7050; J7512; J9999

== ENCOUNTER → 2025-02-04 14:51 | Outpatient (BNVA) | payer MEDICARE, MEDICAID, SELFPAY | PROVIDERS: PCP Family Medicine; Visit Provider Nurse Practitioner Family | DX: Z09 Encounter for follow-up examination after completed treatment for conditions other than malignant neoplasm (principal); I48.20 Chronic atrial fibrillation, unspecified; I48.92 Unspecified atrial flutter; R00.1 Bradycardia, unspecified; Z86.73 Personal history of transient ischemic attack (TIA), and cerebral infarction without residual deficits; I48.91 Unspecified atrial fibrillation | CPT/HCPCS: 93005; 99214 ==

== ENCOUNTER → 2025-04-21 08:51 | Outpatient (BNVA) | payer MEDICARE, MEDICAID, SELFPAY | PROVIDERS: PCP Family Medicine; Visit Provider Nurse Practitioner Family | DX: I48.0 Paroxysmal atrial fibrillation (principal); Z79.01 Long term (current) use of anticoagulants; Z86.73 Personal history of transient ischemic attack (TIA), and cerebral infarction without residual deficits; Z87.891 Personal history of nicotine dependence | CPT/HCPCS: 99213 ==

== ENCOUNTER → 2025-06-29 16:34 | Outpatient (BNVA) | payer OTHER, MEDICAID, SELFPAY | PROVIDERS: PCP Family Medicine; Visit Provider Internal Medicine Cardiovascular Disease | DX: I48.91 Unspecified atrial fibrillation (principal); Z79.01 Long term (current) use of anticoagulants; J32.9 Chronic sinusitis, unspecified; Z86.73 Personal history of transient ischemic attack (TIA), and cerebral infarction without residual deficits; Z87.891 Personal history of nicotine dependence | CPT/HCPCS: 99214 ==

== ENCOUNTER 2025-08-12 13:59 | Outpatient (CLI) | payer OTHER, MEDICAID, SELFPAY ==
--- NOTE | 2025-08-12 14:06 | MM_ITS ---
WS: [id number] BILATERAL SCREENING DIGITAL TOMOSYNTHESIS MAMMOGRAM WITH CAD HISTORY: SCREENING COMPARISON: 08/30/2023 Bilateral CC and MLO views with tomosynthesis and synthetic mammography submitted. Computer aided detection analyzed. Breast composition: The breasts are extremely dense, which lowers the sensitivity of mammography. No suspicious masses, microcalcifications or architectural distortion. Bilateral arterial calcifications are noted in each breast. No suspicious masses or distortion. MM/MM scr tomosynthesis [id number] IMPRESSION: BI-RADS: 2 - Benign FOLLOW UP: 1 Year Follow-up
== END 2025-08-12 14:00 | disposition home or self-care (01) ==
LOC: RAD 14:01
PROVIDERS: PCP Family Medicine; Visit Provider Family Medicine
DX: Z12.31 Encounter for screening mammogram for malignant neoplasm of breast (principal); R92.343 Mammographic extreme density, bilateral breasts; R92.1 Mammographic calcification found on diagnostic imaging of breast
CPT/HCPCS: 77063; 77067